=== PATIENT | female | born 1955 | race Caucasian/White ===

== ENCOUNTER 2020-06-18 15:17 | Outpatient (CLI) | payer OTHER, SELFPAY ==
--- NOTE | ~2020-06-18 | MM_ITS ---
EXAMINATION: MM screening [facility] BI w ericka HISTORY: Screening mammogram TECHNIQUE: Craniocaudal and mediolateral oblique 3-D tomosynthesis images were obtained and synthetic 2-D images were generated. CAD analysis was submitted and interpreted. COMPARISON: 02/03/2010, 12/21/2007 BREAST PARENCHYMAL COMPOSITION: There are scattered areas of fibroglandular density. FINDINGS: A stable low-density mass in the middle third of the inner right breast is consistent with a benign finding. There is no evidence of suspicious mass, calcification, or architectural distortion to suggest malignancy in either breast. There has been no suspicious interval change. IMPRESSION: 1. No mammographic evidence of malignancy. 2. Recommend routine screening mammography in one year. BI-RADS Category 2: Benign finding(s). Reviewed, dictated and finalized at location A. [employer]
== END 2020-06-18 15:18 | disposition home or self-care (01) ==
LOC: ANHIMG 15:21
PROVIDERS: PCP Internal Medicine; Visit Provider Obstetrics & Gynecology
DX: Z12.31 Encounter for screening mammogram for malignant neoplasm of breast (principal)
CPT/HCPCS: 77063; 77067

== ENCOUNTER 2021-07-07 00:18 | Day surgery (SDC) | payer MEDICARE, OTHER, SELFPAY ==
[2021-06-09 13:42] VITALS: BMI 54.6
--- NOTE | 2021-06-25 11:05 | PC.NURSE ---
Pt was on a bus trip to [place], upon return a person on the trip became ill and subsequently tested positive for covid. [facility] notified all patrons on the trip to be tested. Ronel called today and covid test was negative and she is not having any symptoms. She requested to be rescheduled earlier if possible. Recheduled her to 07/07/2021, I have instructed her to call us if she would begin having any symptoms of covid and to be retested. She denies any changes in health or medications from previous interview. Times reviewed for new date and time.
--- NOTE | 2021-07-06 15:22 | PM.HPGS ---
History of Present Illness History of Present Illness Consent: Risks, benefits, and alternatives have been discussed and questions answered. Patient agrees to proceed with procedure. Chief complaint: ulcerative colitis, hx of colon polyps Narrative: Ronel Ireland is a 65 year old female with a long history of ulcerative colitis who is here for surveillance colonoscopy. At the time of her last colonoscopy 2 years ago her colitis was relatively inactive. She did have 2 polyps at that time. She has not seen blood in her stools recently and has no new complaints Review of Systems Review of Systems: All systems reviewed & are unremarkable except as noted in HPI and below PMFSH Past Medical History Medical History GERD (gastroesophageal reflux disease) Hyperlipidemia Hypertension Ulcerative colitis Social History Social History Drinks per week: 5 Living arrangements: with family Spiritual care concerns: No Meds Home Medications and Allergies Home Medications Medication Instructions Recorded Confirmed Type ergocalciferol (vitamin D2) 500,000 unit PO [id number] 06/09/21 06/09/21 History fluticasone propionate 1 spray INTRANASAL DAILY PRN 06/09/21 06/09/21 History furosemide 60 mg PO DAILY 06/09/21 06/09/21 History mesalamine 4.8 g PO DAILY 06/09/21 06/09/21 History omeprazole 40 mg PO DAILY 06/09/21 06/09/21 History potassium chloride [Klor-Con M20] 20 meq PO DAILY 06/09/21 06/09/21 History simvastatin 40 mg PO DAILY 06/09/21 06/09/21 History telmisartan 80 mg PO DAILY 06/09/21 06/09/21 History Allergies Allergy/AdvReac Type Severity Reaction Status Date / Time Penicillins Allergy Mild Hives / Verified 07/07/21 08:22 Red Face Exam Const: General: alert Nutritional Appearance: overweight Orientation/consciousness: patient oriented x3 Resp: Auscultation: clear to auscultation bilaterally Cardio: Rhythm: regular rhythm GI: GI Palp: Yes Soft to palpation and No Tenderness to palpation present (GI) Auscultation: normal bowel sounds Neuro: General: patient oriented x3 Assessment and Plan Assessment and plan (1) Ulcerative colitis: Code(s): K51.90 - Ulcerative colitis, unspecified, without complications Status: Acute Assessment and Plan: Colonoscopy with possible biopsy or polypectomy or cautery or injection of substances.
--- NOTE | 2021-07-07 08:00 | WPDANESEPPF ---
Anes - Initial Pre Proc Eval Procedure: Operation Date: 07/07/21 09:30 Proposed Procedures p Colonoscopy - Dennis Pereyra MD Date/Time: 07/07/21 08:00 Surgeon: Dennis Pereyra MD Pre Op Diagnosis: ulcerative colitis, hx of colon polyps Patient Data Age: 65 Gender: F Height: 1.52 m Weight: 127 kg Allergies Allergy/AdvReac Type Severity Reaction Status Date / Time Penicillins Allergy Mild Hives / Verified 07/07/21 08:22 Red Face Home Medications Medication Instructions Recorded Confirmed Type ergocalciferol (vitamin D2) 500,000 unit PO [id number] 06/09/21 06/09/21 History fluticasone propionate 1 spray INTRANASAL DAILY PRN 06/09/21 06/09/21 History furosemide 60 mg PO DAILY 06/09/21 06/09/21 History mesalamine 4.8 g PO DAILY 06/09/21 06/09/21 History omeprazole 40 mg PO DAILY 06/09/21 06/09/21 History potassium chloride [Klor-Con M20] 20 meq PO DAILY 06/09/21 06/09/21 History simvastatin 40 mg PO DAILY 06/09/21 06/09/21 History telmisartan 80 mg PO DAILY 06/09/21 06/09/21 History Patient hx anesthesia problems: none Family hx anesthesia problems: none Results Review: All pre-operative results and documents have been reviewed as part of the pre-operative evaluation. [facility] Past Medical History Medical History (Updated 07/07/21 @ 08:03 by Xavi Olivo DO) GERD (gastroesophageal reflux disease) Hyperlipidemia Hypertension Ulcerative colitis Social History Social History Drinks per week: 5 Living arrangements: with family Spiritual care concerns: No Anes - Eval Final PreProcedure Day of Procedure 07/07/21 08:00 Patient weight: super morbidly obese Heart: regular rate and rhythm Lungs: clear to auscultation and normal air movement Airway: Mallampati scale class II Neurological: alert and oriented Last oral intake: >/= 8 hours ASA classification: III Emergent: no Anesthetic plan: proceed Anesthesia type and monitoring: general GIVS and standard monitoring Results Review: All pre-operative results and documents have been reviewed as part of the pre-operative evaluation. Informed Consent: The patient's anesthetic plan and its attendant risks and benefits were discussed with the patient/family/POA. Questions were solicited and answers provided to the satisfaction of the patient/family/POA.
[2021-07-07 08:24] VITALS: BP 164/87; PULSE 90; RESP 24; TEMP 36.9; O2SAT 96; BMI 55.5
[2021-07-07] MEDS: LACTATED RINGERS 1,000 ML 150 ML IV CONT (08:36)
[2021-07-07] MEDS: SIMETHICONE ORAL SUSPENSION 20 MG/0.3 ML 30 ML BOTTLE 0.6 ML IRRIGATION (10:03)
[2021-07-07 10:20] VITALS: BP 117/69; PULSE 89; RESP 21; O2SAT 98
[2021-07-07 10:30] VITALS: BP 135/84; PULSE 85; RESP 17; O2SAT 96
[2021-07-07 10:40] VITALS: BP 148/90; PULSE 84; RESP 19; O2SAT 100
== END 2021-07-07 10:54 | disposition home or self-care (01) ==
PROVIDERS: PCP Internal Medicine; Visit Provider Internal Medicine Gastroenterology
PROC: 0DJD8ZZ Inspection of Lower Intestinal Tract, Via Natural or Artificial Opening Endoscopic (ICD-10-PCS; CPT 45378; principal; 2021-07-07 09:30)
DX: Z09 Encounter for follow-up examination after completed treatment for conditions other than malignant neoplasm (principal); D12.5 Benign neoplasm of sigmoid colon; K62.89 Other specified diseases of anus and rectum; K51.50 Left sided colitis without complications; K63.5 Polyp of colon; I10 Essential (primary) hypertension; E78.5 Hyperlipidemia, unspecified; K21.9 Gastro-esophageal reflux disease without esophagitis; E66.01 Morbid (severe) obesity due to excess calories; Z68.43 Body mass index [BMI] 50.0-59.9, adult
CPT/HCPCS: 45381; 45385; 45380; 88305; J2704; J7120

== ENCOUNTER 2021-07-19 14:52 | Outpatient (CLI) | payer MEDICARE, OTHER, SELFPAY ==
--- NOTE | ~2021-07-19 | MM_ITS ---
EXAMINATION: MM screening [facility] BI w ericka HISTORY: Screening mammogram, family history of breast cancer in her sister. TECHNIQUE: Craniocaudal and mediolateral oblique 3-D tomosynthesis images were obtained and synthetic 2-D images were generated. CAD analysis was submitted and interpreted. COMPARISON: 06/18/2020, 02/03/2010 BREAST PARENCHYMAL COMPOSITION: There are scattered areas of fibroglandular density. FINDINGS: There is no evidence of suspicious mass, calcification, or architectural distortion to sugg est malignancy in either breast. There has been no suspicious interval change. IMPRESSION: 1. No mammographic evidence of malignancy. 2. Recommend routine screening mammography in one year. BI-RADS Category 1: Negative Reviewed, dictated and finalized at location A. ER TRAP
== END 2021-07-19 14:53 | disposition home or self-care (01) ==
LOC: ANHIMG 14:53
PROVIDERS: PCP Internal Medicine; Visit Provider Obstetrics & Gynecology
DX: Z12.31 Encounter for screening mammogram for malignant neoplasm of breast (principal)
CPT/HCPCS: 77063; 77067

== ENCOUNTER 2022-09-14 00:31 | Day surgery (SDC) | payer MEDICARE, OTHER, SELFPAY ==
[2022-08-31 12:09] VITALS: BMI 55.0
--- NOTE | 2022-09-13 15:23 | PM.HPGS ---
History of Present Illness History of Present Illness Consent: Risks, benefits, and alternatives have been discussed and questions answered. Patient agrees to proceed with procedure. Chief complaint: hx colon polyps, Ulcerative colitis Narrative: Ronel Ireland is a 67 year old female with a long history of ulcerative colitis. She has done fairly well and is in relative remission. She takes mesalamine, 4.8 g per day. A little over 1 year ago she had a large adenomatous polyp removed from the sigmoid colon. Because of the higher risk of colon cancer in patients with ulcerative colitis, this was worrisome. The polyp was sessile. We will need to investigate to ensure that there is no recurrence of that polyp and to rule out and remove any other polyps. Review of Systems Review of Systems: All systems reviewed & are unremarkable except as noted in HPI and below PMFSH Past Medical History Medical History GERD (gastroesophageal reflux disease) Hyperlipidemia Hypertension Ulcerative colitis Social History Social History Smoking status: Never smoker Alcohol intake: current Drinks per week: 14 Substance use type: does not use Living arrangements: with family Spiritual care concerns: No Meds Home Medications and Allergies Home Medications Medication Instructions Recorded Confirmed Type ergocalciferol (vitamin D2) 1,250 500,000 unit PO [id number] 06/09/21 09/14/22 History mcg (50,000 unit) capsule fluticasone propionate 50 1 spray intranasal DAILY PRN 06/09/21 09/14/22 History mcg/actuation nasal Allergy Symptoms spray,suspension furosemide 20 mg tablet 60 mg PO DAILY 06/09/21 09/14/22 History omeprazole 40 mg capsule,delayed 40 mg PO DAILY 06/09/21 09/14/22 History release potassium chloride 20 mEq 20 meq PO DAILY 06/09/21 09/14/22 History tablet,extended release(part/cryst) (Klor-Con M) simvastatin 40 mg tablet 40 mg PO DAILY 06/09/21 09/14/22 History telmisartan 80 mg tablet 80 mg PO DAILY 06/09/21 09/14/22 History carvedilol 3.125 mg tablet 3.125 mg PO BID 08/31/22 09/14/22 History mesalamine 1.2 gram tablet,delayed 4.8 g PO DAILY 08/31/22 09/14/22 History release Allergies Allergy/AdvReac Type Severity Reaction Status Date / Time Penicillins Allergy Mild Hives / Verified 09/14/22 06:53 Red Face Exam Const: General: alert Orientation/consciousness: patient oriented x3 Resp: Auscultation: clear to auscultation bilaterally Cardio: Rhythm: regular rhythm GI: GI Palp: Yes Soft to palpation and No Tenderness to palpation present (GI) Neuro: General: patient oriented x3 Assessment and Plan Assessment and plan (1) Ulcerative colitis: Code(s): K51.90 - Ulcerative colitis, unspecified, without complications Status: Acute Assessment and Plan: Colonoscopy with possible biopsy or polypectomy or cautery or injection of substances.
[2022-09-14 06:55] VITALS: BP 190/78; PULSE 74; RESP 22; TEMP 36.1; O2SAT 97
[2022-09-14] MEDS: LACTATED RINGERS 1,000 ML 150 ML IV CONT (07:07)
--- NOTE | 2022-09-14 07:43 | WPDANESEPPF ---
Anes - Initial Pre Proc Eval Procedure: Operation Date: 09/14/22 08:15 Proposed Procedures p Colonoscopy - Dennis Pereyra MD Date/Time: 09/14/22 07:43 Surgeon: Dennis Pereyra MD Pre Op Diagnosis: hx colon polyps, Ulcerative colitis Patient Data Age: 67 Gender: F Height: 1.52 m Weight: 129.4 kg Last Vital Signs Temp 97.0 F L 09/14/22 06:55 Pulse 74 09/14/22 06:55 Resp 22 H 09/14/22 06:55 BP 190/78 H 09/14/22 06:55 Pulse Ox 97 09/14/22 06:55 O2 Del Method Room Air 09/14/22 06:55 Allergies Allergy/AdvReac Type Severity Reaction Status Date / Time Penicillins Allergy Mild Hives / Verified 09/14/22 06:53 Red Face Home Medications Medication Instructions Recorded Confirmed Type ergocalciferol (vitamin D2) 1,250 500,000 unit PO [id number] 06/09/21 09/14/22 History mcg (50,000 unit) capsule fluticasone propionate 50 1 spray intranasal DAILY PRN 06/09/21 09/14/22 History mcg/actuation nasal Allergy Symptoms spray,suspension furosemide 20 mg tablet 60 mg PO DAILY 06/09/21 09/14/22 History omeprazole 40 mg capsule,delayed 40 mg PO DAILY 06/09/21 09/14/22 History release potassium chloride 20 mEq 20 meq PO DAILY 06/09/21 09/14/22 History tablet,extended release(part/cryst) (Klor-Con M) simvastatin 40 mg tablet 40 mg PO DAILY 06/09/21 09/14/22 History telmisartan 80 mg tablet 80 mg PO DAILY 06/09/21 09/14/22 History carvedilol 3.125 mg tablet 3.125 mg PO BID 08/31/22 09/14/22 History mesalamine 1.2 gram tablet,delayed 4.8 g PO DAILY 08/31/22 09/14/22 History release Patient hx anesthesia problems: none Family hx anesthesia problems: none Results Review: All pre-operative results and documents have been reviewed as part of the pre-operative evaluation. [facility] Past Medical History Medical History GERD (gastroesophageal reflux disease) Hyperlipidemia Hypertension Ulcerative colitis Social History Social History Smoking status: Never smoker Alcohol intake: current Drinks per week: 14 Substance use type: does not use Living arrangements: with family Spiritual care concerns: No Anes - Eval Final PreProcedure Day of Procedure 09/14/22 07:43 Patient weight: super morbidly obese Heart: regular rate and rhythm Lungs: clear to auscultation Airway: Mallampati scale class III Neurological: alert and oriented Last oral intake: >/= 8 hours ASA classification: IV Emergent: no Anesthetic plan: proceed Anesthesia type and monitoring: general GIVS and standard monitoring Results Review: All pre-operative results and documents have been reviewed as part of the pre-operative evaluation. Informed Consent: The patient's anesthetic plan and its attendant risks and benefits were discussed with the patient/family/POA. Questions were solicited and answers provided to the satisfaction of the patient/family/POA.
[2022-09-14 08:25] VITALS: BP 118/68; PULSE 83; RESP 21; O2SAT 96
[2022-09-14 08:35] VITALS: BP 127/64; PULSE 74; RESP 24; O2SAT 98
[2022-09-14 08:49] VITALS: BP 152/73; PULSE 62; RESP 17; O2SAT 99
== END 2022-09-14 09:01 | disposition home or self-care (01) ==
PROVIDERS: PCP Internal Medicine; Visit Provider Internal Medicine Gastroenterology
PROC: 0DJD8ZZ Inspection of Lower Intestinal Tract, Via Natural or Artificial Opening Endoscopic (ICD-10-PCS; CPT 45378; principal; 2022-09-14 08:15)
DX: Z12.11 Encounter for screening for malignant neoplasm of colon (principal); K63.5 Polyp of colon; K63.89 Other specified diseases of intestine; K57.30 Diverticulosis of large intestine without perforation or abscess without bleeding; I10 Essential (primary) hypertension; E78.5 Hyperlipidemia, unspecified; K21.9 Gastro-esophageal reflux disease without esophagitis; Z87.19 Personal history of other diseases of the digestive system; E66.01 Morbid (severe) obesity due to excess calories; Z68.43 Body mass index [BMI] 50.0-59.9, adult
CPT/HCPCS: 45380; 88305; J2704; J7120

== ENCOUNTER 2022-11-11 12:56 | Outpatient (CLI) | payer MEDICARE, OTHER, SELFPAY | END 2022-11-11 12:57 | disposition home or self-care (01) | LOC: ANHAUDASC 12:57 | PROVIDERS: PCP Internal Medicine; Visit Provider Internal Medicine | DX: H90.3 Sensorineural hearing loss, bilateral (principal) | CPT/HCPCS: 92557; 92567 ==

== ENCOUNTER 2023-01-23 15:00 | Outpatient (CLI) | payer MEDICARE, OTHER, SELFPAY ==
--- NOTE | ~2023-01-23 | MM_ITS ---
EXAMINATION: MM screening [facility] BI w ericka HISTORY: Screening mammogram TECHNIQUE: Craniocaudal and mediolateral oblique 3-D tomosynthesis images were obtained and synthetic 2-D images were generated. CAD analysis was submitted and interpreted. COMPARISON: 07/19/2021, 06/18/2020 bilateral screening mammogram examinations BREAST PARENCHYMAL COMPOSITION: There are scattered areas of fibroglandular density. FINDINGS: There is no evidence of suspicious mass, calcification, or architectural distortion to sugg est malignancy in either breast. There has been no suspicious interval change. IMPRESSION: 1. No mammographic evidence of malignancy. 2. Recommend routine screening mammography in one year. BI-RADS Category 1: Negative Reviewed, dictated and finalized at location A.
== END 2023-01-23 15:01 | disposition home or self-care (01) ==
LOC: ANHIMG 15:03
PROVIDERS: PCP Internal Medicine; Visit Provider Internal Medicine
DX: Z12.31 Encounter for screening mammogram for malignant neoplasm of breast (principal)
CPT/HCPCS: 77063; 77067

== ENCOUNTER 2023-01-24 14:32 | Outpatient (CLI) | payer MEDICARE, OTHER, SELFPAY ==
--- NOTE | 2023-01-26 17:23 | WPDPFTINT ---
PFT Procedure Performed PFT Procedure Performed Plethysmography (Lung Vol) Diffusing Cap (DLCO) Flow Vol Loop Spirometry w/o Bronchodil PFT Interpretation DOS: 01/24/2023 REQUESTING: Jeffery Silver MD REASON FOR TESTING: Shortness of breath PULMONARY FUNCTION TESTS Results are reliable and reproducible. Spirometry: FEV1 is 1.83 L, 92%, normal. FVC 2.38 L, 94%, normal. FEV1 /FVC 77%, normal. No bronchodilator was given. Lung volumes: Total lung capacity 3.65 L, 82%, normal. Residual volume 1.27 L, 66%, normal. RV /TLC is 35%, normal. Airway resistance is normal. Diffusion: DLCO is 19.2, 100% predicted, normal. DLCO/VA is 5.55 L, 123%, normal. Flow volume loop: Normal. IMPRESSION: This study shows normal spirometry, lung volumes and diffusion. No bronchodilator was given. No prior study for comparison. Ronel Villa MD
--- NOTE | 2023-01-27 12:54 | WPDPFTINT ---
PFT Procedure Performed PFT Procedure Performed Plethysmography (Lung Vol) Diffusing Cap (DLCO) Flow Vol Loop Spirometry w/o Bronchodil PFT Interpretation DOS: 01/24/2023 REQUESTING: Jeffery Silver MD REASON FOR TESTING: Shortness of breath PULMONARY FUNCTION TESTS Results are reliable and reproducible. Spirometry: FEV1 is 1.83 L, 92%, normal. FVC is 2.38 L, 94%, normal. FEV1/FVC is 77%, within the normal range. No bronchodilator was given. Lung volumes: total lung capacity is 3.65 L, 82%, normal. Residual volume is 1.27 L, 66%, normal. RV /TLC is 35 %, in the normal range. Airway resistance is normal. Diffusion: DLCO is 19.2, 100%, normal. DLCO/VA is 5.55, 123%, normal. Flow volume loop: Normal IMPRESSION: this study shows normal spirometry, normal lung volumes and normal diffusion capacity. No bronchodilator was given. There is no prior study for comparison. Ronel Villa MD
== END 2023-01-24 14:33 | disposition home or self-care (01) ==
LOC: ANHPFT 14:33
PROVIDERS: PCP Internal Medicine; Visit Provider Internal Medicine
DX: R06.02 Shortness of breath (principal)
CPT/HCPCS: 94375; 94726; 94729

== ENCOUNTER 2023-09-27 00:25 | Day surgery (SDC) | payer MEDICARE, OTHER, SELFPAY ==
[2023-08-31 10:03] VITALS: BMI 53.6
--- NOTE | 2023-09-25 08:59 | SUR.PREOP ---
Patient called regarding upcoming procedure. Voicemail left regarding appointment times.
--- NOTE | 2023-09-26 17:54 | PM.HPGS ---
History of Present Illness History of Present Illness Consent: Risks, benefits, and alternatives have been discussed and questions answered. Patient agrees to proceed with procedure. Chief complaint: Ulcerative colitis Narrative: Ronel Ireland is a 68 year old female with chronic ulcerative colitis who was undergoing evaluation for surveillance. Her last colonoscopy which was a little over 1 year ago revealed no active colitis or dysplasia. She did have a polyp removed at that time. Review of Systems Review of Systems: All systems reviewed & are unremarkable except as noted in HPI and below PMFSH Past Medical History Medical History GERD (gastroesophageal reflux disease) Hiatal hernia Hyperlipidemia Hypertension Normal colonoscopy 05/19/2019 Osteoarthritis (arthritis due to wear and tear of joints) Osteopenia Sleep apnea Ulcerative colitis Surgical History Surgical History H/O arthroscopic knee surgery H/O gynecological procedure Destruction of lesion of uterus History of cardiac cath 09/2017 History of incision and drainage (01/18/23) vulvar incision and drainage History of tonsillectomy and adenoidectomy Family History Family History Sibling Pulmonary embolism Malignant tumor of spinal cord Breast cancer Heart disease Cerebrovascular accident Diabetes mellitus Mother Carotid artery stenosis Acute myocardial infarction Diabetes mellitus Cerebrovascular accident Father Diabetes mellitus Social History Social History Smoking status: Never smoker Alcohol intake: current Drinks per week: 21 Alcohol use details: WINE Substance use: never Substance use type: does not use Living arrangements: with family Occupation/Education: retired Gender identity (if verbalized by the patient): Female Sexual Orientation (if Verbalized by the Patient): Straight or Heterosexual Spiritual care concerns: No Meds Home Medications and Allergies Home Medications Medication Instructions Recorded Confirmed Type ergocalciferol (vitamin D2) 1,250 50,000 unit PO [id number] 06/09/21 09/27/23 History mcg (50,000 unit) capsule fluticasone propionate 50 1 spray intranasal DAILY PRN 06/09/21 09/27/23 History mcg/actuation nasal Allergy Symptoms spray,suspension furosemide 20 mg tablet 60 mg PO DAILY 06/09/21 09/27/23 History omeprazole 40 mg capsule,delayed 40 mg PO DAILY 06/09/21 09/27/23 History release potassium chloride 20 mEq 20 meq PO DAILY 06/09/21 09/27/23 History tablet,extended release(part/cryst) (Klor-Con M) simvastatin 40 mg tablet 40 mg PO DAILY 06/09/21 09/27/23 History telmisartan 80 mg tablet 80 mg PO DAILY 06/09/21 09/27/23 History carvedilol 3.125 mg tablet 3.125 mg PO BID 08/31/22 09/27/23 History coQ10 (ubiquinol) 100 mg capsule 100 mg PO DAILY 08/31/23 09/27/23 History mesalamine 1.2 gram tablet,delayed 2.4 g PO DAILY 08/31/23 09/27/23 History release ecauidrm-dlil-sjgvz acid 240 1 tablet PO DAILY 08/31/23 09/27/23 History mcg-vit K 120 ktx-rnofqm-sgso 293 tablet (Alive Women's 50 Plus (fruit-veg blend)) triamcinolone acetonide 0.1 % 1 applic topical PRN PRN Rash 08/31/23 09/27/23 History topical cream Allergies Allergy/AdvReac Type Severity Reaction Status Date / Time Penicillins Allergy Intermediate Hives / Verified 09/27/23 06:25 Red Face Exam Resp: Auscultation: clear to auscultation bilaterally Cardio: Rate: regular rate Rhythm: regular rhythm GI: GI Palp: Yes Soft to palpation and No Tenderness to palpation present (GI) Assessment and Plan Assessment and plan (1) Ulcerative colitis: Code(s): K51.90 - Ulcerative colitis, unspecified, without complications Status: Acute
[2023-09-27 06:15] VITALS: BP 188/83; PULSE 85; RESP 16; TEMP 36.8; O2SAT 98; BMI 53.1
[2023-09-27] MEDS: LACTATED RINGERS 1,000 ML 150 ML IV CONT (06:42)
--- NOTE | 2023-09-27 07:28 | WPDANESEPPF ---
Anes - Initial Pre Proc Eval Procedure: Operation Date: 09/27/23 07:30 Proposed Procedures p Colonoscopy - Dennis Pereyra MD Date/Time: 09/27/23 07:28 Surgeon: Dennis Pereyra MD Pre Op Diagnosis: Ulcerative colitis Patient Data Age: 68 Gender: F Height: 1.52 m Weight: 123.5 kg Last Vital Signs Temp 98.2 F 09/27/23 06:15 Pulse 85 09/27/23 06:15 Resp 16 09/27/23 06:15 BP 188/83 H 09/27/23 06:15 Pulse Ox 98 09/27/23 06:15 O2 Del Method Room Air 09/27/23 06:15 Allergies Allergy/AdvReac Type Severity Reaction Status Date / Time Penicillins Allergy Intermediate Hives / Verified 09/27/23 06:25 Red Face Home Medications Medication Instructions Recorded Confirmed Type ergocalciferol (vitamin D2) 1,250 50,000 unit PO [id number] 06/09/21 09/27/23 History mcg (50,000 unit) capsule fluticasone propionate 50 1 spray intranasal DAILY PRN 06/09/21 09/27/23 History mcg/actuation nasal Allergy Symptoms spray,suspension furosemide 20 mg tablet 60 mg PO DAILY 06/09/21 09/27/23 History omeprazole 40 mg capsule,delayed 40 mg PO DAILY 06/09/21 09/27/23 History release potassium chloride 20 mEq 20 meq PO DAILY 06/09/21 09/27/23 History tablet,extended release(part/cryst) (Klor-Con M) simvastatin 40 mg tablet 40 mg PO DAILY 06/09/21 09/27/23 History telmisartan 80 mg tablet 80 mg PO DAILY 06/09/21 09/27/23 History carvedilol 3.125 mg tablet 3.125 mg PO BID 08/31/22 09/27/23 History coQ10 (ubiquinol) 100 mg capsule 100 mg PO DAILY 08/31/23 09/27/23 History mesalamine 1.2 gram tablet,delayed 2.4 g PO DAILY 08/31/23 09/27/23 History release kqhvrlol-sfok-unthl acid 240 1 tablet PO DAILY 08/31/23 09/27/23 History mcg-vit K 120 nyy-vqknhs-amuc 293 tablet (Alive Women's 50 Plus (fruit-veg blend)) triamcinolone acetonide 0.1 % 1 applic topical PRN PRN Rash 08/31/23 09/27/23 History topical cream Patient hx anesthesia problems: none Family hx anesthesia problems: none Results Review: All pre-operative results and documents have been reviewed as part of the pre-operative evaluation. [facility] Past Medical History Medical History GERD (gastroesophageal reflux disease) Hiatal hernia Hyperlipidemia Hypertension Normal colonoscopy 05/19/2019 Osteoarthritis (arthritis due to wear and tear of joints) Osteopenia Sleep apnea Ulcerative colitis Surgical History Surgical History H/O arthroscopic knee surgery H/O gynecological procedure Destruction of lesion of uterus History of cardiac cath 09/2017 History of incision and drainage (01/18/23) vulvar incision and drainage History of tonsillectomy and adenoidectomy Family History Family History Sibling Pulmonary embolism Malignant tumor of spinal cord Breast cancer Heart disease Cerebrovascular accident Diabetes mellitus Mother Carotid artery stenosis Acute myocardial infarction Diabetes mellitus Cerebrovascular accident Father Diabetes mellitus Social History Social History Smoking status: Never smoker Alcohol intake: current Drinks per week: 21 Alcohol use details: WINE Substance use: never Substance use type: does not use Living arrangements: with family Occupation/Education: retired Gender identity (if verbalized by the patient): Female Sexual Orientation (if Verbalized by the Patient): Straight or Heterosexual Spiritual care concerns: No Anes - Eval Final PreProcedure Day of Procedure 09/27/23 07:28 Patient weight: super morbidly obese Heart: regular rate and rhythm Lungs: clear to auscultation Airway: Mallampati scale class III Neurological: alert and oriented Last oral intake: >/= 8 hours ASA classification: IV Emergent: no Anesthet
[2023-09-27 07:53] VITALS: BP 107/42; PULSE 72; RESP 16; O2SAT 97
[2023-09-27 08:03] VITALS: BP 119/49; PULSE 69; RESP 21; O2SAT 98
[2023-09-27 08:13] VITALS: BP 111/45; PULSE 64; RESP 17; O2SAT 96
== END 2023-09-27 08:30 | disposition home or self-care (01) ==
PROVIDERS: PCP Internal Medicine; Visit Provider Internal Medicine Gastroenterology
PROC: 0DJD8ZZ Inspection of Lower Intestinal Tract, Via Natural or Artificial Opening Endoscopic (ICD-10-PCS; CPT 45378; principal; 2023-09-27 07:30)
DX: K51.90 Ulcerative colitis, unspecified, without complications (principal); K51.30 Ulcerative (chronic) rectosigmoiditis without complications; D12.5 Benign neoplasm of sigmoid colon; K57.30 Diverticulosis of large intestine without perforation or abscess without bleeding; K21.9 Gastro-esophageal reflux disease without esophagitis; E78.5 Hyperlipidemia, unspecified; I10 Essential (primary) hypertension
CPT/HCPCS: 45380; 45385; 88305; J2704; J7120

== ENCOUNTER 2024-10-04 13:32 | Outpatient (CLI) | payer MEDICARE, OTHER, SELFPAY | END 2024-10-04 13:33 | disposition home or self-care (01) | LOC: MICIMG 13:33 | PROVIDERS: PCP Internal Medicine; Visit Provider Obstetrics & Gynecology | DX: Z12.31 Encounter for screening mammogram for malignant neoplasm of breast (principal) | CPT/HCPCS: 77063; 77067 ==

== ENCOUNTER 2024-10-17 00:15 | Day surgery (SDC) | payer MEDICARE, OTHER, SELFPAY ==
[2024-10-08 09:30] VITALS: BMI 54.1
--- OUTSIDE RECORDS SUMMARY | 2024-10-17 00:19 | XMS_ITS | Clinical Summary ---
Author Organization [facility] [address] Address [address] [place] [address] Care Team Providers Care Abrasive Grader Helper Name Role Phone Jeffery Silver MD Primary Care Provider + [phone] Allergies Active Allergy Reactions Criticality Noted Date Comments Penicillins Medications furosemide (LASIX) 20 mg tablet Take 3 tablets (60 mg total) by mouth daily 8 Active omeprazole (PriLOSEC) 40 mg capsule Take 1 capsule (40 mg total) by mouth daily 8 Active KLOR-CON M20 20 mEq CR tablet Take 1 tablet (20 mEq total) by mouth daily 8 Active mesalamine (LIALDA) 1.2 gram EC tabletIndicatio ns:Ulcerative Colitis Take 4 tablets (4.8 g total) by mouth daily 8 Active ergocalciferol (VITAMIN D) 50,000 unit capsule Take 1 capsule (50,000 Units total) by mouth every 14 (fourteen) days 8 Active telmisartan (MICARDIS) 20 mg tablet Take 1 tablet (20 mg total) by mouth daily Active Wl-Y1-hkl-zinc- trn-ymqe-nxgvj 600 mg calcium- 800 unit-40 mg tablet,chewable Take by mouth Active atorvastatin (LIPITOR) 40 mg tablet Take 1 tablet (40 mg total) by mouth daily Active carvediloL (COREG) 3.125 mg tablet Take 1 tablet (3.125 mg total) by mouth 2 (two) times a day with meals Active fexofenadine (WILLY) 60 mg tablet Take 1 tablet (60 mg total) by mouth daily Active triamcinolone (KENALOG) 0.1 % cream Apply topically 2 (two) times a day Active acidophilus-pec tin, citrus 100 million cell-10 mg capsule Take by mouth Activ e Active Problems Problem Noted Date Diagnosed Date Abnormal nuclear stress test 04/25/2018 HTN (hypertension), benign 04/25/2018 Morbid obesity with BMI of 50.0-59.9, adult 04/07 Dyslipidemia associated with type 2 diabetes araceli litus 04/25/2018 YO (dyspnea on exertion) 04/25/2018 Venous insufficiency 04/25/2018 Arthralgia of hip 12/04/2013 Resolved Problems Problem Noted Date Diagnosed Date Resolved Date 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/11/2009 0 04/25/2018 Encounters Date Type Department Care Team Description 08/05/2024 Telephone [facility] Card[facility] [address] [place] [address] Jeffery Pettit MD from Last 3 Months Surgical History Surgery Date Site/Laterality Comments TONSILLECTOMY KNEE SURGERY SECTION Medical History Medical History Date Comments Hypertension Hyperlipidemia Diabetes mellitus (HCC) Sinusitis Allergic rhinitis Family History Medical History Relation Name Comments Diabetes Father Heart disease Father Diabetes Mother Heart disease Mother Relation Name Status Comments Father (Age 83) Mother Social History Tobacco Use Types Packs/Day Years Used Date Smoking Tobacco: Never Smokeless Tobacco: Never Alcohol Use Standard Drinks/Week Comments Yes 0 (1 standard drink = 0.6 oz pur e alcohol) asional Comments Unknown Sex and Gender Information Value Date Recorded Sex Assigned at Not on file Legal Sex Female 12:00 AM KENNEL ASSISTANT Gender Identity Not on file Sexual Orientation Not on file Obstetrics History Last Filed Vital Signs Vital Sign Reading Time Taken Comments Blood Pressure 132/86 06/28/2024 9:56 AM KENNEL ASSISTANT Pulse 76 06/28/2024 9:56 AM KENNEL ASSISTANT Temperature - - Respiratory Rate - - Oxygen Saturation 98% 06/28/2024 9:56 AM KENNEL ASSISTANT Inhaled Oxygen Concentration - - Weight 127.9 kg (282 lb) 06/28/2024 9:56 AM KENNEL ASSISTANT Height 152.4 cm (5') 06/28/2024 9:56 AM KENNEL ASSISTANT Body Mass Index 55.07 06/28/2024 9:56 AM KENNEL ASSISTANT Plan of Treatment Health Maintenance Due Date Last Done Comments Albumin Creatinine Ratio, Urine 1955 Breast Cancer Screening-Mammogram 1955 Colon Cancer Screening-Colonoscopy 1955 Depression Screening 1955 Fall Risk Assessment 1955 Hemoglobin A1C 1955 Hepatitis C Screening 1955 Osteoporosis Screening-Bone Density Scan 1955 eGFR 1955 Dilated Eye Exam 1955 Foot Exam 1955 DTaP/Tdap/Td Vaccine (1 - Tdap) 1966 Hepatitis B Screening 1973 Pneumococcal vaccine 65+ (1 of 2 - PCV) 1974 Zoster Vaccine (1 of 2) 2005 Well Visit 65+ 2020 Influenza Vaccine (#1) 2024 3, 04/22/2022, 05/25/2020, Additional history exists Lipid Panel 06/28/2025 06/28/2024 Procedures Procedure Name Priority Date/Time Associated Diagnosis Comments POCT LIPID PANEL Routine 06/28/2024 9:50 AM KENNEL ASSISTANT Lipid screening from Last 3 Months or Most Recently Relevant to Health Maintenance Results * POCT lipid panel (06/28/2024 9:50 AM KENNEL ASSISTANT) Cholesterol, POC 180 mg/dL HDL, POC 61 mg/dL Triglycerides, POC 108 mg/dL LDL Cholesterol POC 98 mg/dL Chol/HDL Ratio, POC 2.9 Non-HDL Cholesterol, POC 119 mg/dL Cholesterol Total, POC 180 mg/dL Capillary blood 06/28/2024 9 :50 AM KENNEL ASSISTANT us Jeffery Pettit MD POINT OF CARE TEST ORDER DOUG Final Result from Last 3 Months or Most Recently Relevant to Health Maintenance Insurance [facility] HMO [facility] MEDICARE Care Teams Abrasive Grader Helper Relationship Specialty Start Date End Date Jeffery Silver MD PCP - General Internal Medicine 04/25/18
--- OUTSIDE RECORDS SUMMARY | 2024-10-17 00:19 | XMS_ITS | CONTINUITY OF CARE DOCUMENT ---
Author Name marleni yepez Address Unknown Organization [facility] Address [address] [place] [address] Phone [phone] Care Team Providers Care Night Assistant Name Role Phone NIDHI ESQUIVEL, ROMAN Dash Unavailable INSURANCE PROVIDERS Payer name Policy type / Coverage type [employer]rita red democr[employer] [place] [employer] [id number] insurance company [id number]
--- OUTSIDE RECORDS SUMMARY | 2024-10-17 00:19 | XMS_ITS | Data Portability ---
Author Organization [place] - [facility], Main Office Address [address] [place] [address] Care Team Providers Care Sorting Machine Operator Name Role Phone ROMAN SILVER Primary Care Provider [phone] ROMAN SILVER Referring Provider [phone] Assessment Encounter Date Assessment Date Assessment LastModified by Organization Details LastModified Time 12/12/2023 12/12/2023 68-year-old female presents for follow-up of her left shoulder. She has left shoulder osteoarthritis being treated conservatively. At her last visit in August, she got a cortisone injection. That worked well for her for a couple of months but it is beginning to wear off. She returns today looking for repeat injection. She denies any changes since her previous visit otherwise. She currently rates her pain as 9/10. She has range of motion 120/20/back pocket, with crepitus. She has 5 5 rotator cuff strength. Neurovascular intact. We will proceed with a repeat cortisone injection today. We discussed that she can get these every few months as long as they are working. She should continue to work on weight loss as her current BMI is still 53.7. Follow-up as needed, may repeat injection in 3-4 months Not available 12/12/2023 23:35:07 03/13/2024 03/13/2024 68-year-old female presents for follow-up of her left shoulder. She has a history of arthritis and got an injection at her last visit in August of this year. That has since worn off and she reports 9/10 pain, feeling similar. Exam unchanged from previously We repeated the cortisone injection today. She tolerated well. She may follow-up as needed, for her next set of injections. Not available 03/13/2024 16:46:46 05/01/2024 05/01/2024 Time spent with patient included: preparing to see patient by reviewing tests, obtaining and reviewing history, medical examination and evaluation, counseling and educating the patient, ordering medications and tests, documenting clinical information in EHR, independently interpreting results and communicating results to the patient for a total of 46 minutes. [email or web address] Not available 05/01/2024 14:09:40 06/19/2024 06/19/2024 68-year-old female presents for follow-up of her left shoulder. She has a history of arthritis and got an injection at her last visit 3 months ago that has since worn off and she reports 9/10 pain, feeling similar. She is not taking medications for pain. She states her PCP prescribed her tramadol but she has been hesitant to take it. Exam unchanged from previously We repeated the cortisone injection today. She tolerated well. She may follow-up every 3 months for injections. [email or web address] Not available 06/19/2024 15:48:25 10/02/2024 10/02/2024 HPI: 69-year-old female presents today for follow-up of left shoulder pain secondary to osteoarthritis. She received an injection on 06-19-24, which provided minimal relief. Notes that her shoulder hurts more, especially when she sleeps. Reports pain as 9/10, not taking anything for pain. She is concern about the risk of GI bleeding that comes with taking anti-inflammatori es. She would like to proceed with an injection today. Physical Exam: General: Normal appearance. No acute distress. Inspection: No evidence of swelling, erythema, bruising or deformity. Palpation: Minimal tenderness at the AC Joint ROM: 110/20/back pocket Motor: 5/5 strength. Sensation: Sensation intact. Imaging: Xray reviewed. No fractures or other bony abnormalities. Severe glenohumeral joint space lost with osteophytes and subchondral sclerosis Assessment & Plan: Injection was given today. Patient tolerated the injection. Patient will monitor site for signs of infection and report any adverse side effects. Rx for Celebrex 100mg BID. Discussed that celebrex has been shown to have a greater GI and cardiovascular safety then when to compared to other anti-inflammatori es. She is also on a PPI, which also helps reduce the risk of GI bleeding. PT ordered. Follow Up: 3 months for recheck and possible injection. All questions were answered. Patient verbalized understanding of treatment plan [email or web address] Not available 10/06/2024 23:23:09 Plan of Treatment Reminders Order Date Submit Date Provider Last Modified By Organization Details Last Modified Time Details Appointments Any 5 2024 01:00P Lisa Ibarra MD Not available Not available Not available Lab None recorded. Referral physical therapist referral - Please schedule pt for L shoulder arthritis . Thanks 2024 025 [facility] [place] [facility], [address], [place], [address], 10/15/2024 18:24:09 Procedures injection /aspirati on joint/bur sa (PROC) 2024 025 [email or web address] 1 In-Office Order, Internal Use Only DO Not Attach Compendium DO Not Attach Compendium, Do Not Delete/merge, [id number] 10/02/2024 14:29:01 injection /aspirati on joint/bur sa (PROC) 2023 024 [email or web address] In-Office Order, Internal Use Only DO Not Attach Compendium DO Not Attach Compendium, Do Not Delete/merge, [id number] 06/19/2024 15:36:31 injection /aspirati on joint/bur sa (PROC) 2023 024 [email or web address] 1 In-Office Order, Internal Use Only DO Not Attach Compendium DO Not Attach Compendium, Do Not Delete/merge, [id number] 12/12/2023 11:09:54 Surgeries None recorded. Imaging XR, shoulder 2024 025 [email or web address] [facility], [address], [place], [address], 10/06/2024 23:23:12 Medication Orders Celebrex 100 mg capsule 2024 025 [email or web address] [id number], [address] [place], [address], 10/03/2024 01:02:37 bupivacai ne HCl 0.5 % (5 mg/mL) injection solution 2024 025 [facility], [address] [place] [address], [id number], 10/02/2024 14:48:17 Kenalog 10 mg/mL suspensio n for injection 2024 025 [facility], [address] [place] [address], [id number], 10/02/2024 14:48:17 bupivacai ne HCl 0.5 % (5 mg/mL) injection solution 2023 024 [facility], [address] [place] [address], [id number], 06/22/2024 21:18:55 Kenalog 10 mg/mL suspensio n for injection 2023 024 [facility], [address] [place] [address], [id number], 06/22/2024 21:18:55 bupivacai ne HCl 0.5 % (5 mg/mL) injection solution 2023 024 [email or web address] [facility], [address] [place] [address], [id number], 03/13/2024 15:41:08 Kenalog 10 mg/mL suspensio n for injection 2023 024 [email or web address] [facility], [address] [place] [address], [id number], 05/01/2024 12:11:56 Patient TargetsNo targets recorded. Patient InstructionsNo instructions recorded. Reason for Referral Physical Therapist Referral for Localized, primary osteoarthritis of the shoulder region L shoulder Please schedule pt for L shoulder arthritis. Thanks Referring Physician: Cheli Aguilera, Orthopedic Surgery, Encounter Date: 10/02/2024 Results Created Date Observation Date Name Description Value Unit Range Abnormal Flag Note LastModifiedBy Organization Detail LastModifiedTime 10/02/19 25 XR, shoul durga No observ ation record ed. [email or web address] [facility] [place] [address], [place], [address], 10/06/2024 23:23:12 Result Notes None recorded. Problems Name Problem SNOMED Code Status Onset Date Resolution Date Notes Provider Name and Address Organization Details Recorded Time Hearing loss 87277758 Active 2022 Not Available [facility] 3 19:51:24 Dyspnea 900738400 Active 2022 Not Available [facility] 3 19:51:24 Localized, primary osteoarthr itis of the shoulder region 667427093 Active 2022 Not Available [facility] 3 19:51:24 Cough 48673397 Active 2022 Not Available [facility] 3 19:51:24 Glucose level outside reference range 050172909 Completed Not Available [facility] 3 04:53:01 Cellulitis 907931524 Completed Not Available [facility] 3 04:53:01 Localized, primary osteoarthr itis of the pelvic region and thigh 049370108 Active Not Available [facility] 3 19:51:24 Abdominal pain 43498603 Completed Not Available [facility] 3 04:53:01 Gastroesop hageal reflux disease 355379909 Active 2021 Not Available [facility] 3 19:51:24 Ankle pain 833812822 Active Not Available [facility] 3 19:51:24 Small intestine glucose intoleranc e 784957456 Completed Not Available [facility] 3 04:53:01 Wound of skin 871282673 Active Not Available [facility] 3 19:51:24 Hemorrhage of rectum and anus 359704024 Active Not Available [facility] 3 19:51:24 Pure hyperchole sterolemia 278218525 Active Not Available [facility] 3 19:51:24 Low back pain 207265860 Completed Not Available [facility] 3 04:53:02 Adnexal tenderness 442363145 Active Not Available [facility] 3 19:51:24 Osteopenia 132277432 Active Not Available [facility] 3 19:51:24 Otitis externa 9475629 Completed Not Available [facility] 3 04:53:02 Vitamin D deficiency 22892846 Active Not Available [facility] 3 19:51:24 Osteoarthr itis 813829079 Active Not Available [facility] 3 19:51:24 Sleep disorder 48603672 Active 2021 Not Available [facility] 3 19:51:24 Painless rectal bleeding 205272910 Active Not Available [facility] 3 19:51:24 Essential hypertensi on 99615560 Active 2016 Not Available [facility] 3 19:51:24 Ulcerative colitis 45598349 Active 2019 Not Available [facility] 3 19:51:24 Osteoporos is 44315012 Active 2021 Not Available [facility] 3 19:51:24 Venous stasis 00243271 Active Not Available [facility] 3 19:51:24 Obstructiv e sleep apnea syndrome 52199542 Active 2021 Not Available [facility] 3 19:51:24 Hyperglyce savita 38494321 Active Not Available [facility] 3 19:51:24 COVID-19 178648287 Active 2021 Not Available [facility] 3 19:51:24 Fatigue 83109307 Active 2021 Not Available [facility] 3 19:51:24 Urge incontinen ce of urine 54037558 Active Not Available [facility] 3 19:51:24 Notes:Medical History: Ocula r histoplasmosis COVID infection 12/2021 Rhinitis Obesity with very severe OSAHS, AHI = 80, 03/21/22, on CPAP c/o IVRC Hypertension Hyperlipidemia Prediabetes SHADY Ulcerative colitis Urge urinary incontinence Vit D deficiency Osteopenia Osteoarthritis Venous stasis Procedure History: T&A Arthroscopic knee surgery Problem Notes None recorded. Procedures Surgical History Date Name Laterality Status Provider Name and Address Organization Details Recorded Time 10/02/19 25 Corticosteroid Injection completed Cheli Aguilera PA-C [address], [address], [place], [address], [facility] 10/06/2024 23:16:15 06/19/20 24 Ortho - Cortisone Injection completed Lexi Plascencia NP [address], [address], [place], [address], [facility] 06/19/2024 15:49:16 03/13/20 24 Ortho - Cortisone Injection completed Trent Ibarra MD [address], [address], [place], [address], [facility] 03/13/2024 16:46:59 12/12/19 24 Ortho - Cortisone Injection completed Trent Ibarra MD [address], [address], [place], [address], [employer] 12/12/2023 23:35:21 09/06/19 24 Ortho - Cortisone Injection completed Trent Ibarra MD [address], [address], [place], [address], [facility] [employer] 09/06/2023 21:41:56 04/26/20 23 Ortho - Cortisone Injection completed Trent Ibarra MD [address], [address], [place], [address], [facility] 04/26/2023 13:55:44 07/19/20 21 Most Recent Mammogram completed Not Available [facility] 10/05/2022 04:42:31 07/07/20 21 Date of Last Colonoscopy completed Not Available [facility] 10/05/2022 04:42:30 06/05/20 19 Colonoscopy completed Not Available [facility] 10/05/2022 04:42:34 03/13/20 14 Most Recent Bone Density completed Not Available [facility] 10/05/2022 04:42:30 Knee arthroscopy/surger y completed Not Available [facility] 10/05/2022 04:42:34 completed Not Available [facility] 10/05/2022 04:42:34 Tonsillectomy completed Not Available [facility] 10/05/2022 04:42:34 Cardiac Cath completed Not Available [facility] 10/05/2022 04:42:34 destruction of lesion of uterus completed Not Available [facility] 10/05/2022 04:42:34 Imaging Results Imaging Date Name Status LastModified by Organiz ation Details LastModified Time 10/02/2024 XR, shoulder completed [facility] [place] [address], [place], [address], 10/06/2024 23:23:12 Procedure Notes None recorded. Medical Equipment None Reported. Allergies Allergen ID Allergen Name Allergen Category Reaction Reaction Severity Criticality Documentation Date Start Date Code Code System Note Provider Name and Address Organization Details Recorded Time 8562 Product containin g penicilli n (product) medicatio n hives Not available Not available 10/05/2022 [id number] [id number] SNOMED Not Available [facility] 05:05:58 Medications Name Sig Start Date Stop Date Status Note LastModified by Organization Details LastModified Time atorvasta tin 40 mg tablet TAKE 1 TABLET BY MOUTH EVERY DAY active Not Available Not Available No t Available neomycin- polymyxin -hydrocor t 3.5 mg/mL-10, 000 unit/mL-1 % ear solution 3 drops TID both ears 09/04 completed Not Available Not Available Not Available doxycycli ne hyclate 100 mg capsule TAKE 1 CAPSULE BY MOUTH TWICE A DAY FOR 10 DAYS active Not Available Not Available No t Available clindamyc in HCl 300 mg capsule TAKE 1 CAPSULE BY MOUTH EVERY 8 HOURS 12/22 completed Not Available Not Available Not Available Proctocor t 30 mg rectal supposito ry Insert 1 supposit ory twice a day by rectal route for 7 days. 11/28 completed Not Available Not Available Not Available benzonata te 200 mg capsule Take 1 capsule 3 times a day by oral route. active Not Available Not Available No t Available tolterodi ne ER 4 mg capsule,e xtended release 24 hr TAKE 1 CAPSULE BY MOUTH EVERY DAY FOR 90 DAYS. 01/31 completed did not take this medicati on Not Available Not Available Not Available bupivacai ne HCl 0.5 % (5 mg/mL) injection solution Take 2 mL by injectio n route. 2024 active Not Available Not Available Not Avai lable prednison e 20 mg tablet take 3 tablets x 3days 2 tablets x 3days 1tablet x 3 days active Not Available Not Available No t Available Zithromax Z-Hao 250 mg tablet TAKE 2 TABLETS (500 MG) BY ORAL ROUTE ONCE DAILY FOR 1 DAY THEN 1 TABLET (250 MG) BY ORAL ROUTE ONCE DAILY FOR 4 DAYS 09/04 completed Not Available Not Available Not Available permethri n 5 % topical cream APPLY (THOROUG HLY MASSAGE INTO SKIN FROM HEAD TO SOLES OF FEET) BY TOPICAL ROUTE ONCE LEAVE ON FOR 8-14 HR, THEN REMOVE BY THOROUGH WASHING active Not Available Not Available No t Available metronida zole 500 mg tablet 07/23 completed Not Available Not Available Not Available ciproflox acin 500 mg tablet active Not Available Not Available No t Available sulfameth oxazole 800 mg-trimet hoprim 160 mg tablet TAKE 1 TABLET BY MOUTH EVERY 12 HOURS 03/13 completed Not Available Not Available Not Available omeprazol e 40 mg capsule,d elayed release TAKE 1 CAPSULE BY MOUTH EVERY DAY active Not Available Not Available No t Available tramadol 50 mg tablet TAKE 1 TABLET 3 TIMES A DAY BY ORAL ROUTE NEEDED. MAX 7 DAYS FOR FIRST FILL active Not Available Not Available No t Available triamcino lone acetonide 0.1 % topical cream APPLY DAILY TO RASH 06/18 completed Not Available Not Available Not Available simvastat in 40 mg tablet TAKE 1 TABLET BY MOUTH EVERY DAY active Not Available Not Available No t Available carvedilo l 3.125 mg tablet TAKE 1 TABLET BY MOUTH TWICE A DAY active Not Available Not Available No t Available hydrocort isone acetate 25 mg rectal supposito ry Insert 1 supposit ory twice a day by rectal route for 7 days. 04/03 completed Not Available Not Available Not Available potassium chloride ER 20 mEq tablet,ex tended release(p art/cryst ) TAKE 1 TABLET BY MOUTH EVERY DAY active Not Available Not Available No t Available Kenalog 10 mg/mL suspensio n for injection Take 4 mL by injectio n route. 2024 active [facility]: [phone] 4-20 Not Available Not Available Not Available pantopraz ole 40 mg tablet,de layed release Take 1 tablet every day by oral route. 06/09 completed Not Available Not Available Not Available triamcino lone acetonide 0.1 % topical ointment APPLY TO AFFECTED AREA TWICE A DAY DIRECTED 12/24 completed Not Available Not Available Not Available lansopraz ole 30 mg capsule,d elayed release active Not Available Not Available Not Available telmisart an 80 mg tablet TAKE 1 TABLET BY MOUTH EVERY DAY active Not Available Not Available No t Available monteluka st 10 mg tablet TAKE 1 TABLET BY MOUTH EVERY DAY 03/13 completed Not Available Not Available Not Available furosemid e 20 mg tablet TAKE 3 TABLETS BY MOUTH EVERY DAY active Not Available Not Available No t Available Levaquin 500 mg tablet Take 1 tablet every day by oral route for 10 days. 09/09 completed Not Available Not Available Not Available ergocalci ferol (vitamin D2) 1,250 mcg (50,000 unit) capsule TAKE 1 CAPSULE EVERY 2 WEEKS BY ORAL ROUTE. active Not Available Not Available No t Available methylpre dnisolone 4 mg tablets in a dose pack take decreasi ng doses as directed active Not Available Not Available No t Available albuterol sulfate HFA 90 mcg/actua tion aerosol inhaler INHALE 2 PUFFS BY MOUTH EVERY 4 HOURS NEEDED FOR WHEEZING / SHORTNES S OF BREATH 06/18 completed Not Available Not Available Not Available celecoxib 100 mg capsule TAKE 1 CAPSULE BY MOUTH TWICE A DAY active Not Available Not Available No t Available Cortispor in-TC 3.3 mg-3 mg-10 mg-0.5 mg/mL ear drops,saurabh pension 3 drops in affected ear x 1 week active Not Available Not Available No t Available losartan 100 mg tablet TAKE 1 TABLET BY MOUTH EVERY DAY 05/20 completed Not Available Not Available Not Available fluticaso ne propionat e 50 mcg/actua tion nasal spray,saurabh pension SPRAY 1 SPRAY INTO EACH NOSTRIL EVERY DAY 03/12 completed Not Available Not Available Not Available neomycin- polymyxin -hydrocor t 3.5 mg-10,000 unit/mL-1 % ear drops,saurabh p USE 4 DROPS IN THE LEFT EAR 4 TIMES A DAY active Not Available Not Available No t Available Fish Oil 11/28 completed Not Available Not Available Not Available Glucosami ne 05/25 completed Not Available Not Available Not Available multivita min 10/15 completed Not Available Not Available Not Available Glucosami ne Chondroit in MaxStr 2014 active Not Available Not Available Not Avai lable Calcium 600 + D(3) 10/15 completed Not Available Not Available Not Available lidocaine (PF) 10 mg/mL (1 %) injection solution In office injectio n administ ered by the provider 06/22 completed [facility]: [phone] 6-17 Not Available Not Available Not Available mesalamin e 1.2 gram tablet,de layed release TAKE 4 TABLETS BY MOUTH DAILY active Not Available Not Available No t Available CoQ-10 06/18 completed Not Available Not Available Not Available Align (B. is) 11/28 completed Not Available Not Available Not Available Suprep Bowel Prep Kit 17.5 gram-3.13 gram-1.6 gram oral solution USE DIRECTED 02/05 completed Not Available Not Available Not Available [facility] 03/12 completed Not Available Not Available Not Available ropivacai ne (PF) 5 mg/mL (0.5 %) injection solution Take 4 mg by injectio n route. 03/12 completed [facility] [phone] 4- Not Available Not Available Not Available Flucelvax Quad (PF) 60 mcg (15 mcg x 4)/0.5 mL IM syringe PHARMACY ADMINIST ERED 08/24 completed Not Available Not Available Not Available Paxlovid 300 mg (150 mg x 2)-100 mg tablets in a dose pack TAKE 3 TABLETS TWICE A DAY BY ORAL ROUTE FOR 5 DAYS. 10/28 completed Not Available Not Available Not Available COVID-19 At-Home Test kit FOLLOW INSTRUCT IONS INCLUDED WITH THE PACKAGE. 12/22 completed Not Available Not Available Not Available Mounjaro 2.5 mg/0.5 mL subcutane ous pen injector INJECT 2.5MG WEEKLY FOR 4 WKS THEN GO TO 5MG WEEKLY active Not Available Not Available No t Available Vitals Date Recorded Body height Body mass index (BMI) Body weight Pain severity - 0-10 verbal numeric rating [Score] - Reported Provider Name and Address Organization Details Last Updated DateTime 12/12/2023 152.4 cm 53.7 kg/m2 129011.9 g 9 Lawanda Vaughn [facility] 12/12/2023 10:55:57 Date Recorded Body height Body mass index (BMI) Body weight Pain severity - 0-10 verbal numeric rating [Score] - Reported Provider Name and Address Organization Details Last Updated DateTime 03/13/2024 152.4 cm 55.3 kg/m2 631306.64 g Umu Vaughn [facility] 03/13/2024 15:40:39 Date Recorded Body height Body mass index (BMI) Body weight Body temperature Heart rate Oxygen saturation Oxygen saturation in Arterial blood by Pulse oximetry Respiratory rate Heart rate Systolic blood pressure Diastolic blood pressure Provider Name and Address Organization Details Last Updated DateTime 152.4 cm 55.2 kg/m2 881245. 92 g 98.1 [degF] 64 /min 95 % 95 % 16 /min 64 /min 146 mm[Hg] 70 mm[Hg] Corinne Kilpatrick MA [facility] 12:15:02 Date Recorded Body height Body mass index (BMI) Body weight Pain severity - 0-10 verbal numeric rating [Score] - Reported Provider Name and Address Organization Details Last Updated DateTime 06/19/2024 152.4 cm 55.3 kg/m2 543309.64 g Umu Vaughn [facility] 06/19/2024 15:34:45 Date Recorded Body height Body mass index (BMI) Body weight Provider Name and Address Organization Details Last Updated DateTime 10/02/2024 154.94 cm 53.5 kg/m2 356272.64 g Cynthia Herring [place] - [facility] 10/02/2024 13:52:36 Social History Question Answer Notes LastModified by Organization Details LastModified Time Tobacco Smoking Status Never Smoker Not Available [facility] 10/05/2022 04:15:53 Do You Have An Advance Directive? No [id number] Information not available 10/05/2022 What Is Your Level Of Alcohol Consumption? 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 Heavy MIGRATION.0301 [id number] Information not available 10/05/2022 How Much Tobacco Do You Chew? None MIGRATION.0301 [id number] Information not available 10/05/2022 In The 14 Days Before Symptom Onset, Have You Had Close Contact With A Laboratory-confi rmed COVID-19 While That Case Was Ill? No MIGRATION.0301 [id number] Information not available 10/05/2022 In The 14 Days Before Symptom Onset, Have You Had Close Contact With A Person Who Is Under Investigation For COVID-19 While That Person Was Ill? No MIGRATION.0301 [id number] Information not available 10/05/2022 Are You Deaf Or Do You Have Serious Difficulty Hearing? No MIGRATION.0301 [id number] Information not available 10/05/2022 What Type Of Diet Are You Following? REGULAR MIGRATION.0301 [id number] Information not available 10/05/2022 Which Illicit Or Recreational Drugs Have You Used? None MIGRATION.0301 [id number] Information not available 10/05/2022 Do You Or Have You Ever Used E-cigarettes Or Vape? Never Used Electronic Cigarettes [email or web address].030 [id number] Information not available 10/05/2022 What Is The Highest Grade Or Level Of School You Have Completed Or The Highest Degree You Have Received? [id number] MIGRATION.030 [id number] Information not available 10/05/2022 Have There Been Any Changes To Your Family Or Social Situation? No MIGRATION.030 [id number] Information not available 10/05/2022 What Is The Fluoride Status Of Your Home? Unknown MIGRATION.030 [id number] Information not available 10/05/2022 Are There Any Guns Present In Your Home? No MIGRATION.0301 [id number] Information not available 10/05/2022 Do You Use Insect Repellent Routinely? No MIGRATION.0301 [id number] Information not available 10/05/2022 Where Do You Live? [place]House MIGRATION.0301 [id number] Information not available 10/05/2022 Do You Have A Medical Power Of Refining Supervisor? No MIGRATION.0301 [id number] Information not available 10/05/2022 What Was The Date Of Your Most Recent Tobacco Screening? 03/13/2024 [email or web address] Information not available 03/13/2024 Have You Ever Been Counseled For Unhealthy Alcohol Use? No MIGRATION.0301 [id number] Information not available 10/05/2022 Do You Have Any Pets? No MIGRATION.0301 [id number] Information not available 10/05/2022 What Is Your Relationship Status? MIGRATION.0301 [id number] Information not available 10/05/2022 Do You Use Your Seat Belt Or Car Seat Routinely? Yes MIGRATION.0301 [id number] Information not available 10/05/2022 Do You Have Smoke And Carbon Monoxide Detectors In Your Home? Yes MIGRATION.0301 012516 Information not available 10/05/2022 Are You Passively Exposed To Smoke? No MIGRATION.0301 609687 Information not available 10/05/2022 Do You Or Have You Ever Used Smokeless Tobacco? Never Used Smokeless Tobacco MIGRATION.0301 812208 Information not available 10/05/2022 Are There Any Smokers In Your House? No MIGRATION.0301 054130 Information not available 10/05/2022 How Much Tobacco Do You Smoke? No MIGRATION.0301 089738 Information not available 10/05/2022 What Types Of Sporting Activities Do You Participate In? None MIGRATION.0301 234423 Information not available 10/05/2022 Do You Feel Stressed (tense, Restless, Nervous, Or Anxious, Or Unable To Sleep At Night)? [id number] MIGRATION.0301 734991 Information not available 10/05/2022 Do You Use Any Illicit Or Recreational Drugs? No MIGRATION.0301 809527 Information not available 10/05/2022 Do You Use Sunscreen Routinely? Yes MIGRATION.0301 239651 Information not available 10/05/2022 Has Tobacco Cessation Counseling Been Provided? No Not Needed-n ever Smoked MIGRATION.0301 931819 Information not available 10/05/2022 How Many Years Have You Smoked Tobacco? 0 MIGRATION.0301 032490 Information not available 10/05/2022 Have You Recently Traveled Abroad? No MIGRATION.0301 894320 Information not available 10/05/2022 Do You Have Any Dietary Restrictions? No MIGRATION.0301 846744 Information not available 10/05/2022 Do You Or Have You Ever Used Any Other Forms Of Tobacco Or Nicotine? No MIGRATION.0301 288833 Information not available 10/05/2022 Sex: Female Functional Status Question Answer Note LastModified by Organizat ion Details LastModified Time Do you have difficulty walking or climbing stairs? Yes MIGRATION.462091 0099 Information not available 10/05/2022 Do you have transportation difficulties? No MIGRATION.512058 3180 Information not available 10/05/2022 Are you able to walk? YESASSIST uses walker MIGRATION.946455 6321 Information not available 10/05/2022 Do you have difficulty doing errands alone? No MIGRATION.673500 3638 Information not available 10/05/2022 Are you able to care for yourself? Yes MIGRATION.002077 5583 Information not available 10/05/2022 Do you have difficulty dressing or bathing? No MIGRATION.165061 8854 Information not available 10/05/2022 What is your exercise level? None MIGRATION.871244 2979 Information not available 10/05/2022 Mental Status Question Answer Note LastModified by Organizat ion Details LastModified Time Do you have difficulty concentrating, remembering or making decisions? No MIGRATION.[id number] 6 Information not available 10/05/2022 Family History Relationship Description Onset Age of this Age Resolved Age Notes LastModified by Organization Details LastModified Time Father Diabetes mellitus MIGRATION.597 [id number] Not available 10/05/2022 04:42:36 Father Malignant neoplastic disease 83 MIGRATION.502 1087134 Not available 10/05/2022 04:42:36 Father Heart disease MIGRATION.394 1046353 Not available 10/05/2022 04:42:36 Sister Carcinoma of breast MIGRATION.517 7744697 Not available 10/05/2022 04:42:36 Sister Diabetes mellitus MIGRATION.070 9913155 Not available 10/05/2022 04:42:37 Sister Pulmonary embolism MIGRATION.695 9003414 Not available 10/05/2022 04:42:37 Mother Carotid artery stenosis MIGRATION.486 0031019 Not available 10/05/2022 04:42:37 Mother Diabetes mellitus MIGRATION.845 [id number] Not available 10/05/2022 04:42:37 Mother Cerebrovascu lar accident MIGRATION.274 [id number] Not available 10/05/2022 04:42:37 Brother Malignant tumor of spinal cord MIGRATION.858 [id number] Not available 10/05/2022 04:42:37 Brother Myocardial infarction 52 MIGRATION.626 [id number] Not available 10/05/2022 04:42:37 Medical History Condition Response NERVE DISEASE N BLINDNESS N RHEUMATIC FEVER N KIDNEY STONES N BLADDER PROBLEMS N MRSA N OTHER # 1 Y POLIO N LUNG DISEASE/DISORDER N COPD N RADIATION / CHEMOTHERAPY N Other # 2 N BLOOD DISEASES N EAR OR HEARING PROBLEMS N MUMPS N BOWEL PROBLEMS Y DEPRESSION (INCLUDING POST ) N STROKE/TIA N ULCERS N BENIGN PROSTATIC HYPERPLASIA N MEASLES N MYOCARDIAL INFARCTION N OBESITY Y GERD/NAUSEA N ANEURYSM N URINARY/BLADDER/KIDNEY PROBLEMS Y CORONARY ARTERY DISEASE (CAD) N ADDICTION CONCERNS N ENDOMETRIOSIS N Impotence N USE OF BLOOD THINNERS N SKIN PROBLEMS Y GASTROINTESTINAL DISORDER N PERIPHERAL VASCULAR DISEASE N MUSCLE,JOINT OR BONE PROBLEMS N GASTROINTESTINAL BLEEDING N BLOOD CLOTS N ASTHMA N CATARACTS N ERECTILE DYSFUNCTION N VARICOSITIES N GI PROBLEMS N Low Testosterone N INFERTILITY N AIDS/HIV N CHEMOTHERAPY / RADIATION N LIVER DISEASE N MALE HYPOGONADISM N HYPERTENSION Y Deficiency Y TOURETTE'S N ANXIETY DISORDER N BLOOD TRANSFUSION N ANEMIA/BLOOD DISORDER N CHRONIC EAR INFECTIONS N BRONCHITIS N TUBERCULOSIS N GLAUCOMA N FOOT PROBLEM N DIVERTICULITIS N SLEEP APNEA N CHICKENPOX N INFECTIOUS DISEASE N HEART ARRHYTHMIA N PROSTATE N INSOMNIA N HIGH CHOLESTEROL / HYPERLIPIDEMIA Y HYPERTHYROIDISM N EYE PROBLEMS N EDEMA N CHRONIC PAIN SYNDROME N HYPOTHYROIDISM N CAROTID BLOCKAGE N CONSTIPATION N BACK / NECK PROBLEMS N HAVE YOU BEEN HOSPITALIZED OR SEEN IN [facility] IN THE PAST YEAR ? N ATHEROSCLEROSIS N BREAST PROBLEMS N DIALYSIS N ECZEMA N OSTEOPOROSIS N ARTHRITIS Y APPENDICITIS N DIABETES, TYPE Y BAD TEETH N ENT N HEARTBURN / REFLUX Y AUTISM SPECTRUM DISORDER (ASD) N HEPATITIS / LIVER DISEASE N GOUT N SLEEP DISORDER N ALZHEIMER'S DISEASE N Brain Problems N HERPES N DEMENTIA N HEADACHES/MIGRAINES N SEIZURES/EPILEPSY N VASCULAR DISEASE N PACEMAKER N Blood Disorder N DIZZINESS N HEART DISEASE/HEART PROBLEMS N KIDNEY DISEASE N MULTIPLE SCLEROSIS N CARDIAC ARRHYTHMIA N CANCER: SPECIFY N ATRIAL FIBRILLATION N Gall Stones N PULMONARY EMBOLISM N AUTOIMMUNE DISEASE N Gynecological History Statement/Question Response Date of Last Pap 08/09/2017 Date of Last Mammogram 07/19/2021 Current Control Method Menopause Date of Last Colonoscopy 07/07/2021 Most Recent Mammogram 07/19/2021 Most Recent Bone Density 03/13/2014 Obstetrics History GPAL:G 3 P 3 0 0 3 Type Value Full Term 3 Living 3 Total 3 Immunizations Vaccine Type Date Status Note Provider Nam e and Address Organization Details Recorded Time SARS-COV-2 (COVID-19) vaccine, UNSPECIFIED 3 completed Meño Zamora RMDamon canas, [facility] [employer] 05/25/2023 10:29:53 influenza, unspecified formulation 3 completed Meño Zamora RMA null, [employer] 05/25/2023 10:30:01 COVID-19, mRNA, LNP-S, PF, 100 mcg/0.5mL dose or 50 mcg/0.25mL dose 1 completed Not Available [facility] 01/12/2023 10:53:17 COVID-19, mRNA, LNP-S, PF, 100 mcg/0.5mL dose or 50 mcg/0.25mL dose 1 completed Not Available [facility] 01/12/2023 10:53:17 COVID-19, mRNA, LNP-S, PF, 100 mcg/0.5mL dose or 50 mcg/0.25mL dose 1 completed Not Available [facility] 01/12/2023 10:53:17 Influenza, split virus, quadrivalent, preservative 0 completed Not Available [facility] 01/12/2023 10:53:17 Influenza, split virus, quadrivalent, preservative 8 completed Not Available [facility] 01/12/2023 10:53:17 Influenza, split virus, quadrivalent, preservative 7 completed Not Available [facility] 01/12/2023 10:53:17 COVID-19, mRNA, LNP-S, PF, 30 mcg/0.3 mL dose 2 completed Not Available [facility] 01/12/2023 10:53:17 Influenza, high-dose, trivalent, PF 2 completed Not Available [facility] 01/12/2023 10:53:17 COVID-19, mRNA, LNP-S, PF, 100 mcg/0.5mL dose or 50 mcg/0.25mL dose 2 completed Not Available [facility] 01/12/2023 10:53:17 Pneumococcal conjugate PCV20, polysaccharide OUF334 conjugate, adjuvant, PF 2 completed Not Available [facility] 01/12/2023 10:53:17 Past Encounters Encounter ID Performer Location Encounter Start Date Encounter Closed Date Diagnosis/Indication Diagnosis SNOMED-CT Code Diagnosis ICD10 Code Diagnosis Note [id number] [facility] [address] [place] [address] 11/17/2020 00:00:00 11/17/2020 17:07:43 [id number] [facility] [address] [place] [address] 12/24/2020 00:00:00 12/26/2020 20:13:09 [id number] [facility] [place] [address] [place] [address] 12/29/2020 00:00:00 12/29/2020 15:45:54 [id number] [facility] [place] [address] [place] [address] 04/20/2021 00:00:00 04/20/2021 14:19:34 [id number] [facility] [place] [address], [place] [address] 06/22/2021 00:00:00 07/07/2021 21:57:24 [id number] [facility] [place] [address] [place] [address] 08/10/2021 00:00:00 08/10/2021 13:57:30 [id number] [facility] [place] [address] , [place] [address] 10/19/2021 00:00:00 10/19/2021 21:07:39 [id number] [facility] [place] [address] [place] [address] 11/09/2021 00:00:00 11/09/2021 16:54:25 [id number] [facility] [place] [address] [place] [address] 02/23/2022 00:00:00 02/23/2022 16:54:16 [id number] [facility] [place] [address] [facility] [address] , [place] [address] 03/01/2022 00:00:00 03/05/2022 20:47:22 [id number] [facility] [place] [address] [place] [address] 06/07/2022 00:00:00 06/07/2022 16:25:48 [id number] [facility] [place] [address] [facility] [address] , [place] [address] 06/09/2022 00:00:00 06/11/2022 13:58:45 [id number] [facility] [place] [address] [place] [address] 07/05/2022 00:00:00 07/05/2022 17:03:14 [id number] [facility] [place] [address] , [place] [address] 08/30/2022 00:00:00 08/30/2022 21:29:50 [id number] [facility] [place] [address] [place] [address] 09/06/2022 00:00:00 09/06/2022 15:26:58 [id number] Aparna Damon WAFER POLISHER-BC [facility] [place] [address] [place] [address] 10/28/2022 10:50:11 10/31/2022 08:32:52 Obstructive sleep apnea syndrome 87101889 G47.33 Home study 03/2022 with AHI 80In lab titration with best pressure obtainedMa chine set up 05/25/22Do wnload today with 100% use greater than 4 hours.She is on PAP 12cm H2OAHI is 2.1ESS 9She has good use and clinical benefitOSA is well correctedE ncouraged 100% compliance with all sleepFollo w with PCM for labsAdvise d good sleep habits and patterns:- Set a goal for at least 7 to 8 hours of sleep time per day.-Use the bed mainly for sleep and to go to bed only when tired. If unable to fall asleep after 30 minutes, patient should get out of bed but should not engage in any activity that requires sustained mental alertness. -Maintain a regular bedtime and wake-up time even on weekends-A void excessive naps during the daytime. If a nap is necessary, limit it to no more than 30 minutes.-M inimize environmen kelby noise, bright lights, and extremes in bedroom temperatur e.-Avoid alcohol, caffeinate d beverages, and nicotine products for at least 6 hours prior to bedtime.-A void strenuous exercise and large meals for at least 4 hours prior to bedtime.Or durga for travel PAP machine todayOrder for small nasal pillows todayDiscu ssed supply cleaning and reordering She is aware of reportable signs and symptomsRT C in 6 months History of SARS-CoV-2 29 [id number] 41243923 Z86.16 +Decemberersis tent symptomsI have instructed her to reach out to PCM and I would be happy to assist with workup if requested Body mass index 40+ - severely obese 248110523 Z68.43 Discussed weight management .Healthy well balanced meals. Increase exercise, ideally 30 minutes most days of the week. [id number] Roman Silver MD [facility] [place] [address] [facility] [address] , [place] [address] 12/22/2022 13:56:10 12/22/2022 14:46:34 Ulcerative colitis 42818034 K51.90 Venous stasis 16120402 I 87.8 Essential hypertension 19421271 I10 Dyspnea 527760245 R06.02 [id number] Gerber Maurer MD [facility] [place] [address] [place] [address] 12/27/2022 14:32:39 12/27/2022 15:25:22 Osteoarthritis 256840542 M19.012 sterile technique standard protocol injected 8 cc xylocaine 2 cc of Kenalog into the glenohumer al joint I will see her back in 3 or 4 months for follow-up [id number] Trent Ibarra MD [facility] [place] [address] [place] [address] 04/26/2023 10:50:19 04/26/2023 11:18:55 Localized, primary osteoarthritis of the shoulder region 675672325 M19.218 [id number] Roman Silver MD [facility] Internal Med [facility] [address] [facility] [address], [facility] [place] [address] 04/27/2023 13:57:49 04/27/2023 15:04:53 Cough 66467905 R05.9 Essential hypertension 03920599 I10 Ulcerative colitis 82693 004 K51.90 Gastroesop hageal reflux disease 504294865 K21.9 Venous stasis 27871221 I 87.8 Pure hypercholesterolemia 722743566 E78.[id number] [facility] Pul[facility] [place] [address] [place] [address] 05/01/2023 14:40:02 05/01/2023 15:39:33 Obstructive sleep apnea syndrome 29943932 G47.33 Home study 03/2022 with AHI 80In lab titration with best pressure obtainedMa chine set up 05/25/22Do wnload today with 97% use greater than 4 hours.She is on PAP 12cm H2OAHI is 1.6ESS 9She has good use and clinical benefitOSA is well correctedE ncouraged 100% compliance with all sleepFollo w with PCM for labsAdvise d good sleep habits and patterns:- Set a goal for at least 7 to 8 hours of sleep time per day.-Use the bed mainly for sleep and to go to bed only when tired. If unable to fall asleep after 30 minutes, patient should get out of bed but should not engage in any activity that requires sustained mental alertness. -Maintain a regular bedtime and wake-up time even on weekends-A void excessive naps during the daytime. If a nap is necessary, limit it to no more than 30 minutes.-M inimize environmen kelby noise, bright lights, and extremes in bedroom temperatur e.-Avoid alcohol, caffeinate d beverages, and nicotine products for at least 6 hours prior to bedtime.-A void strenuous exercise and large meals for at least 4 hours prior to bedtime.Or durga for travel PAP machine todayOrder for small nasal pillows todayDiscu ssed supply cleaning and reordering She is aware of reportable signs and symptomsSH e should follow up in 1 year Body mass index 40+ - severely obese 770735815 Z68.43 Discussed weight management .Healthy well balanced meals.Incr ease exercise, ideally 30 minutes most days of the week. [id number] Trent Ibarra MD [facility] [place] [address] [place] [address] 09/06/2023 14:43:21 09/06/2023 15:18:30 Localized, primary osteoarthritis of the shoulder region 905886709 M19.184 [id number] Trent Ibarra MD [facility] [place] [address] [place] [address] 12/12/2023 10:53:32 12/12/2023 11:05:08 Localized, primary osteoarthritis of the shoulder region 569428602 M19.647 [id number] Trent Ibarra MD [facility] [place] [address] [place] [address] 03/13/2024 15:24:15 03/13/2024 16:01:10 Localized, primary osteoarthritis of the shoulder region 078827637 M19.231 [id number] Giovanna De Los Santos NP [facility] [address] [place] [address] 05/01/2024 11:54:25 05/02/2024 14:50:06 Obstructive sleep apnea syndrome 85540879 G47.33 Home study 03/2022 with AHI 80In lab titration with best pressure obtainedMa chine set up 05/25/22Do wnload today with 88% use greater than 4 hours-did take travel CPAP on her vacationSh e is on PAP 12cm H2OAHI is 1.7She has good use and clinical benefitOSA is well correctedE ncouraged 100% compliance with all sleepFollo w with PCM for labsAdvise d good sleep habits and patterns:- Set a goal for at least 7 to 8 hours of sleep time per day.-Use the bed mainly for sleep and to go to bed only when tired. If unable to fall asleep after 30 minutes, patient should get out of bed but should not engage in any activity that requires sustained mental alertness. -Maintain a regular bedtime and wake-up time even on weekends-A void excessive naps during the daytime. If a nap is necessary, limit it to no more than 30 minutes.-M inimize environmen kelby noise, bright lights, and extremes in bedroom temperatur e.-Avoid alcohol, caffeinate d beverages, and nicotine products for at least 6 hours prior to bedtime.-A void strenuous exercise and large meals for at least 4 hours prior to bedtime.Or durga for travel PAP machine todayOrder for small nasal pillows todayDiscu ssed supply cleaning and reordering She is aware of reportable signs and symptomsSh e should follow up in 1 year Body mass index 40+ - severely obese 301376592 Z68.43 Encourage healthy diet and exercise to improve weightdisc ussed weight effect on sleep and sleep apnea Fatigue 78521425 R53.83 Encourage her to find ways to exercise moreFollow -up with primary to discuss fatigue and decreased exercise capacity with sob-PFT last year was normal-str seema family hx of [place] [id number] Lexi Plascencia NP [facility] [place] [address] [place] [address] 06/19/2024 15:32:13 06/19/2024 16:10:24 Localized, primary osteoarthritis of the shoulder region 357454421 M19.334 [id number] Cheli Aguilera PA-C [facility] [place] [address] [place] [address] 10/02/2024 13:49:08 10/02/2024 14:25:55 Localized, primary osteoarthritis of the shoulder region 149400249 M19.012 Health Concerns Section Related Observation LastModified by Organization Detai ls LastModified Time None Recorded Concern Status LastModified by Organization Details LastModified Time None Recorded Advance Directives Directive N: Payers Encounter Date Sequence Insurance Name Policy Number Policy Hernandez Covered Member ID Hernandez Member ID Guarantor Name 12/12/2023 1 [place] Ronel L Grayland [id number] Ronel Vazquez Shu 12/12/2023 2 [employer] - CHOICE (POS II) [id number] Ronel L Grayland [id number] Ronel Edwardsn Shu 03/13/2024 1 [place] Ronel L Grayland [id number] 23 Ronel Edwardsn Shu 03/13/2024 2 [employer] - CHOICE (POS II) [id number] Ronel L Grayland [id number] Ronel Taylor Shu 05/01/2024 1 [place] Ronel L Shu [id number] 23 Ronel Edwardsn Shu 05/01/2024 2 [employer] - CHOICE (POS II) [id number] Ronel L Shu [id number] Ronel Taylor Shu 06/19/2024 1 [place] Ronel L Grayland [id number] 23 Ronel Taylor Shu 06/19/2024 2 [employer] - CHOICE (POS II) [id number] Ronel L Shu [id number] Ronel Taylor Grayland 10/02/2024 1 [place] Ronel L Grayland [id number] 23 Ronel Taylor Shu 10/02/2024 2 [employer] - CHOICE (POS II) [id number] Ronel L Shu [id number] Ronel Taylor Shu Notes Date Note Type Note Provider Name and Address Organization Details Recorded Time 05/01/2024 text/html CPAP F/UReported bypatient.CPAPPati ent is using CPAP and estimates 6 hours of PAP use nightly.; No problems with CPAP; mask does not leak; no trouble with sleep initiation; no problems with sleep maintenance; does not remove CPAP mask during the night; does not wake up in the middle of the night with dry mouth; no snoring through the mask; no aerophagia; no abdominal discomfort; no skin irritation; no ear pain; no ear pressure; no nasal congestion; sleep related symptoms have markedly improved; wakes up rested; no excessive daytime sleepiness; no headache; no memory loss; weight is stableNotes:Patipaige t notes the past few months more fatigue and sob, notes that she has just got back from a vacation to [place] and home remodeling done and feels some of the fatigue is related to that-she denies chest pain or palpitations Giovanna De Los Santos NP [address] [address], [place], [address], [facility] [employer] [facility] 05/01/2024 14:10:09 OBGyn Episode No OBEpisode recorded.
--- OUTSIDE RECORDS SUMMARY | 2024-10-17 00:19 | XMS_ITS | Data Portability ---
Author Organization [facility] Address [address] [place] [address] Care Team Providers Care Cost Accounting Clerk Name Role Phone ROMAN SILVER Primary Care Provider Unavailabl e Assessment Encounter Date Assessment Date Assessment LastModified by Organization Details LastModified Time 11/06/2023 11/06/2023 We will continue current therapy with blood work to evaluate her medical problems we will add Singulair because of some sinus drainage [email or web address] Not available 11/07/2023 14:05:04 03/18/2024 03/18/2024 continue current therapy really can not use a whole lot Tylenol not helping for pain anti-inflamma tories not a good choice because of her stomach we are going to try a little bit of tramadol 50 mg b.i.d. p.r.n. side effects discussed consider gabapentin if this does not work blood work has been ordered she will follow up with me in about 3 or 4 months [email or web address] Not available 03/18/2024 23:35:31 07/25/2024 07/25/2024 blood work. GLP 1 agent and titrate she will consider. Healthy lifestyle care instructions. Flu shot. Other medicines we will continue we will review the blood work when it becomes available see me in 4 months [email or web address] Not available 07/27/2024 17:17:44 Plan of Treatment Reminders Order Date Submit Date Provider Last Modified By Organization Details Last Modified Time Details Appointments ANY 15 2024 01:00P Lisa Silver MD Not available Not available Not available Lab HbA1c (hemoglob in A1c), blood 2023 024 [facility], [address], [place], [address], 09/05/2024 07:08:46 lipid panel, serum 2023 024 [facility], [address], [address], [place], [address], 09/05/2024 07:08:44 CMP, serum or plasma 2023 024 [facility], [address], [place], [address], 09/05/2024 07:08:45 CBC w/ auto diff 2023 024 [facility], [address], [place], [address], 09/05/2024 07:08:47 HbA1c (hemoglob in A1c), blood 2023 024 [facility], [address], [place], [address], 05/10/2024 08:25:05 lipid panel, serum 2023 024 [facility], [address], [place], [address], 05/10/2024 08:25:03 CMP, serum or plasma 2023 024 [facility], [address], [place], [address], 05/10/2024 08:25:04 CBC w/ auto diff 2023 024 [facility], [address], [place], [address], 05/10/2024 08:25:06 HbA1c (hemoglob in A1c), blood 2023 024 [facility], [address], [place], [address], 11/07/2023 11:15:12 CBC w/ auto diff 2023 024 [facility], [address], [address], [place], [address], 11/07/2023 11:15:14 lipid panel, serum 2023 024 [facility], [address], [place], [address], 11/07/2023 11:15:10 CMP, serum or plasma 2023 024 [facility], [address], [place], [address], 11/07/2023 11:15:11 TSH, ultra-sen sitive, serum 2023 024 [facility], [address], [place], [address], 11/07/2023 11:15:13 T3, free, serum or plasma 2023 024 [facility], [address], [address], [place], [address], 11/07/2023 11:15:14 unlisted lab - T4, free 2023 [facility], [address], [place], [address], 11/07/2023 11:15:10 Referral None recorded. Procedures None recorded. Surgeries None recorded. Imaging None recorded. Medication Orders Mounjaro 2.5 mg/0.5 mL subcutane ous pen injector 2023 [facility] #[id number], [address] [place], [address], 07/25/2024 17:33:51 Patient TargetsNo targets recorded. Patient Instructions Encounter Date Encounter Id Patient Instructions Last Modified By Organization Details Last Modified Time 07/25/2024 [id number] A healthy lifestyle: care instructions [email or web address] Not available 07/25/2024 15:33:02 Reason for Referral None Reported. Results Created Date Observation Date Name Description Value Unit Range Abnormal Flag Note LastModifiedBy Organization Detail LastModifiedTime 11/06/19 24 11/07/2023 LIPID PANEL cholesterol, total 209 mg/dL 100-19 9 above high normal Not Available [facility] ([facility]) [address] [place], [address], 11/07/2023 11:15:09 11/06/19 24 11/07/2023 LIPID PANEL triglyceride s 116 mg/dL 0-149 Not Available [facility] ([facility]) [address] [place], [address], 11/07/2023 11:15:09 11/06/19 24 11/07/2023 LIPID PANEL HDL cholesterol 66 mg/dL >39 Not Available [facility] ([facility]) [address] [place], [address], 11/07/2023 11:15:09 11/06/19 24 11/07/2023 LIPID PANEL VLDL cholesterol benjamin 20 mg/dL 5-40 Not Available [facility] ([facility]) [address] [place], [address], 11/07/2023 11:15:09 11/06/19 24 11/07/2023 LIPID PANEL LDL chol calc ([facility]) 123 mg/dL 0-99 above high normal Not Available [facility] ([facility]) [address] [place], [address], 11/07/2023 11:15:09 11/06/19 24 11/07/2023 T4, FREE T4,free(dire ct) 1.27 NG/dL 0.82-1 .77 Not Available [facility] ([facility]) [address] [place], [address], 11/07/2023 11:15:10 11/06/19 24 11/07/2023 COMP. METAB OLIC PANEL (14) glucose 103 mg/dL 70-99 above high normal Not Available [facility] ([facility]) [address] [facility] [place], [address], 11/07/2023 11:15:11 11/06/19 24 11/07/2023 COMP. METAB OLIC PANEL (14) BUN 13 mg/dL 8-27 Not Available [facility] ([facility]) [address] [facility] [place], [address], 11/07/2023 11:15:11 11/06/19 24 11/07/2023 COMP. METAB OLIC PANEL (14) creatinine 0.63 mg/dL 0.76-1 .27 below low normal Not Available [facility] ([facility]) [address] [facility] [place], [address], 11/07/2023 11:15:11 11/06/19 24 11/07/2023 COMP. METAB OLIC PANEL (14) eGFR 104 mL/mi n/1.7 3 >59 Not Available [facility] ([facility]) [address] [facility] [place], [address], 11/07/2023 11:15:11 11/06/19 24 11/07/2023 COMP. METAB OLIC PANEL (14) BUN/creatini ne ratio 21 10-24 Not Available [facility] ([facility]) [address] [facility] [place], [address], 11/07/2023 11:15:11 11/06/19 24 11/07/2023 COMP. METAB OLIC PANEL (14) sodium 140 mmol/ L 134-14 4 Not Available [facility] ([facility]) [address] [facility] [place] [place], [address], 11/07/2023 11:15:11 11/06/19 24 11/07/2023 COMP. METAB OLIC PANEL (14) potassium 4.8 mmol/ L 3.5-5. 2 Not Available [facility] ([facility]) [address] [place], [address], 11/07/2023 11:15:11 11/06/19 24 11/07/2023 COMP. METAB OLIC PANEL (14) chloride 102 mmol/ L 96-106 Not Available [facility] ([facility]) [address] [facility], [place], [address], 11/07/2023 11:15:11 11/06/19 24 11/07/2023 COMP. METAB OLIC PANEL (14) carbon dioxide, total 25 mmol/ L 20-29 Not Available [facility] ([facility]) [address] [facility], [place], [address], 11/07/2023 11:15:11 11/06/19 24 11/07/2023 COMP. METAB OLIC PANEL (14) calcium 9.3 mg/dL 8.6-10 .2 Not Available [facility] ([facility]) [address] [place], [address], 11/07/2023 11:15:11 11/06/19 24 11/07/2023 COMP. METAB OLIC PANEL (14) protein, total 7.0 g/dL 6.0-8. 5 Not Available [facility] ([facility]) [address] [place], [address], 11/07/2023 11:15:11 11/06/19 24 11/07/2023 COMP. METAB OLIC PANEL (14) albumin 4.5 g/dL 3.9-4. 9 Not Available [facility] ([facility]) [address] [place], [address], 11/07/2023 11:15:11 11/06/19 24 11/07/2023 COMP. METAB OLIC PANEL (14) globulin, total 2.5 g/dL 1.5-4. 5 Not Available [facility] ([facility]) [address] [facility] [place], [address], 11/07/2023 11:15:11 11/06/19 24 11/07/2023 COMP. METAB OLIC PANEL (14) A/G ratio 1.8 1.2-2. 2 Not Available [facility] ([facility]) [address] [facility] [place], [address], 11/07/2023 11:15:11 11/06/19 24 11/07/2023 COMP. METAB OLIC PANEL (14) bilirubin, total 0.6 mg/dL 0.0-1. 2 Not Available [facility] ([facility]) [address] [facility] [place], [address], 11/07/2023 11:15:11 11/06/19 24 11/07/2023 COMP. METAB OLIC PANEL (14) alkaline phosphatase 70 IU/L 44-121 Not Available [facility]) [address] [facility] [place], [address], 11/07/2023 11:15:11 11/06/19 24 11/07/2023 COMP. METAB OLIC PANEL (14) AST (SGOT) 20 IU/L 0-40 Not Available [facility] ([facility]) [address] [facility] [place] [place], [address], 11/07/2023 11:15:11 11/06/19 24 11/07/2023 COMP. METAB OLIC PANEL (14) ALT (SGPT) 19 IU/L 0-44 Not Available [facility] ([facility]) [address] [facility] [place] [place], [address], 11/07/2023 11:15:11 11/06/19 24 11/07/2023 HEMOG LOBIN A1C hemoglobin A1C 6.3 % 4.8-5. 6 above high normal Predi abete s: 5.7 - 6.4 Diabe russ: >6.4 Glyce collins contr ol for adult s with diabe russ: <7.0 Not Available [facility] ([facility]) [address] [place], [address], 11/07/2023 11:15:12 11/06/19 24 11/07/2023 TSH TSH 0.928 uIU/m L 0.450- 4.500 Not Available [facility] ([facility]) [address] [place], [address], 11/07/2023 11:15:13 11/06/19 24 11/07/2023 CBC WITH DIFFE RENTI AL/PL ATELE T WBC 5.5 x10e3 /uL 3.4-10 .8 Not Available [facility] ([facility]) [address] [place], [address], 11/07/2023 11:15:14 11/06/19 24 11/07/2023 CBC WITH DIFFE RENTI AL/PL ATELE T RBC 4.23 x10e6 /uL 4.14-5 .80 Not Available [facility] ([facility]) [address] [place], [address], 11/07/2023 11:15:14 11/06/19 24 11/07/2023 CBC WITH DIFFE RENTI AL/PL ATELE T hemoglobin 12.5 g/dL 13.0-1 7.7 below low normal Not Available [facility] ([facility]) [address] [place], [address], 11/07/2023 11:15:14 11/06/19 24 11/07/2023 CBC WITH DIFFE RENTI AL/PL ATELE T hematocrit 37.5 % 37.5-5 1.0 Not Available [facility] ([facility]) [address] [place], [address], 11/07/2023 11:15:14 11/06/19 24 11/07/2023 CBC WITH DIFFE RENTI AL/PL ATELE T MCV 89 fL 79-97 Not Available [facility] ([facility]) [address] [facility], [place], [address], 11/07/2023 11:15:14 11/06/19 24 11/07/2023 CBC WITH DIFFE RENTI AL/PL ATELE T MCH 29.6 pg 26.6-3 3.0 Not Available [facility] ([facility]) [address] [facility], [place], [address], 11/07/2023 11:15:14 11/06/19 24 11/07/2023 CBC WITH DIFFE RENTI AL/PL ATELE T MCHC 33.3 g/dL 31.5-3 5.7 Not Available [facility] ([facility]) [address] [facility], [place], [address], 11/07/2023 11:15:14 11/06/19 24 11/07/2023 CBC WITH DIFFE RENTI AL/PL ATELE T RDW 14.1 % 11.6-1 5.4 Not Available [facility] ([facility]) [address] [facility], [place], [address], 11/07/2023 11:15:14 11/06/19 24 11/07/2023 CBC WITH DIFFE RENTI AL/PL ATELE T platelets 360 x10e3 /uL 150-45 0 Not Available [facility] ([facility]) [address] [facility], [place], [address], 11/07/2023 11:15:14 11/06/19 24 11/07/2023 CBC WITH DIFFE RENTI AL/PL ATELE T neutrophils 54 % notest ab. Not Available [facility] ([facility]) [address] [facility], [place], [address], 11/07/2023 11:15:14 11/06/19 24 11/07/2023 CBC WITH DIFFE RENTI AL/PL ATELE T lymphs 32 % notest ab. Not Available [facility] ([facility]) [address] [facility], [place], [address], 11/07/2023 11:15:14 11/06/19 24 11/07/2023 CBC WITH DIFFE RENTI AL/PL ATELE T monocytes 9 % notest ab. Not Available [facility] ([facility]) [address] [facility], [place], [address], 11/07/2023 11:15:14 11/06/19 24 11/07/2023 CBC WITH DIFFE RENTI AL/PL ATELE T eos 4 % notest ab. Not Available [facility] ([facility]) [address] [facility], [place], [address], 11/07/2023 11:15:14 11/06/19 24 11/07/2023 CBC WITH DIFFE RENTI AL/PL ATELE T basos 1 % notest ab. Not Available [facility] ([facility]) [address] [facility], [place], [address], 11/07/2023 11:15:14 11/06/19 24 11/07/2023 CBC WITH DIFFE RENTI AL/PL ATELE T neutrophils (absolute) 3.0 x10e3 /uL 1.4-7. 0 Not Available [facility] ([facility]) [address] [place], [address], 11/07/2023 11:15:14 11/06/19 24 11/07/2023 CBC WITH DIFFE RENTI AL/PL ATELE T lymphs (absolute) 1.8 x10e3 /uL 0.7-3. 1 Not Available [facility] ([facility]) [address] [facility], [place], [address], 11/07/2023 11:15:14 11/06/19 24 11/07/2023 CBC WITH DIFFE RENTI AL/PL ATELE T monocytes(ab solute) 0.5 x10e3 /uL 0.1-0. 9 Not Available [facility] ([facility]) [address] [place], [address], 11/07/2023 11:15:14 11/06/19 24 11/07/2023 CBC WITH DIFFE RENTI AL/PL ATELE T eos (absolute) 0.2 x10e3 /uL 0.0-0. 4 Not Available [facility] ([facility]) [address] [facility], [place], [address], 11/07/2023 11:15:14 11/06/19 24 11/07/2023 CBC WITH DIFFE RENTI AL/PL ATELE T baso (absolute) 0.1 x10e3 /uL 0.0-0. 2 Not Available [facility] ([facility]) [address] [place], [address], 11/07/2023 11:15:14 11/06/19 24 11/07/2023 CBC WITH DIFFE RENTI AL/PL ATELE T immature granulocytes 0 % notest ab. Not Available [facility] ([facility]) [address] [place], [address], 11/07/2023 11:15:14 11/06/19 24 11/07/2023 CBC WITH DIFFE RENTI AL/PL ATELE T immature grans (abs) 0.0 x10e3 /uL 0.0-0. 1 Not Available [facility] ([facility]) [address] [place], [address], 11/07/2023 11:15:14 11/06/19 24 11/07/2023 TRIIO DOTHY JESSICA E (T3), FREE triiodothyro nine (T3), free 2.6 pg/mL 2.0-4. 4 Not Available [facility] ([facility]) [address] [place], [address], 11/07/2023 11:15:14 05/09/20 24 05/10/2024 LIPID PANEL cholesterol, total 219 mg/dL 100-19 9 above high normal Not Available [facility] ([facility]) [address] [place], [address], 05/10/2024 08:25:02 05/09/20 24 05/10/2024 LIPID PANEL triglyceride s 160 mg/dL 0-149 above high normal Not Available [facility] ([facility]) [address] [place], [address], 05/10/2024 08:25:02 05/09/2005/10/2024 LIPID PANEL HDL cholesterol 68 mg/dL >39 Not Available [facility] ([facility]) [address] [place], [address], 05/10/2024 08:25:02 05/09/20 24 05/10/2024 LIPID PANEL VLDL cholesterol benjamin 28 mg/dL 5-40 Not Available [facility] ([facility]) [address] [place], [address], 05/10/2024 08:25:02 05/09/20 24 05/10/2024 LIPID PANEL LDL chol calc ([facility]) 123 mg/dL 0-99 above high normal Not Available [facility] ([facility]) [address] [place], [address], 05/10/2024 08:25:02 05/09/20 24 05/10/2024 COMP. METAB OLIC PANEL (14) glucose 102 mg/dL 70-99 above high normal Not Available [facility] ([facility]) [address] [place], [address], 05/10/2024 08:25:04 05/09/20 24 05/10/2024 COMP. METAB OLIC PANEL (14) BUN 13 mg/dL 8-27 Not Available [facility] ([facility]) [address] [place], [address], 05/10/2024 08:25:04 05/09/20 24 05/10/2024 COMP. METAB OLIC PANEL (14) creatinine 0.63 mg/dL 0.57-1 .00 Not Available [facility] ([facility]) [address] [facility], [place], [address], 05/10/2024 08:25:04 05/09/20 24 05/10/2024 COMP. METAB OLIC PANEL (14) eGFR 97 mL/mi n/1.7 3 >59 Not Available [facility] ([facility]) [address] [facility], [place], [address], 05/10/2024 08:25:04 05/09/20 24 05/10/2024 COMP. METAB OLIC PANEL (14) BUN/creatini ne ratio 21 12-28 Not Available [facility] ([facility]) [address] [facility], [place], [address], 05/10/2024 08:25:04 05/09/20 24 05/10/2024 COMP. METAB OLIC PANEL (14) sodium 135 mmol/ L 134-14 4 Not Available [facility] ([facility]) [address] [facility], [place], [address], 05/10/2024 08:25:04 05/09/20 24 05/10/2024 COMP. METAB OLIC PANEL (14) potassium 4.9 mmol/ L 3.5-5. 2 Not Available [facility] ([facility]) [address] [facility], [place], [address], 05/10/2024 08:25:04 05/09/20 24 05/10/2024 COMP. METAB OLIC PANEL (14) chloride 98 mmol/ L 96-106 Not Available [facility] ([facility]) [address] [facility], [place], [address], 05/10/2024 08:25:04 05/09/20 24 05/10/2024 COMP. METAB OLIC PANEL (14) carbon dioxide, total 22 mmol/ L 20-29 Not Available [facility] ([facility]) [address] [facility], [place], [address], 05/10/2024 08:25:04 05/09/20 24 05/10/2024 COMP. METAB OLIC PANEL (14) calcium 9.2 mg/dL 8.7-10 .3 Not Available [facility] ([facility]) [address] [facility], [place], [address], 05/10/2024 08:25:04 05/09/2005/10/2024 COMP. METAB OLIC PANEL (14) protein, total 6.9 g/dL 6.0-8. 5 Not Available [facility] ([facility]) [address] [facility], [place], [address], 05/10/2024 08:25:04 05/09/20 24 05/10/2024 COMP. METAB OLIC PANEL (14) albumin 4.5 g/dL 3.9-4. 9 Not Available [facility] ([facility]) [address] [place], [address], 05/10/2024 08:25:04 05/09/20 24 05/10/2024 COMP. METAB OLIC PANEL (14) globulin, total 2.4 g/dL 1.5-4. 5 Not Available [facility] ([facility]) [address] [place], [address], 05/10/2024 08:25:04 05/09/20 24 05/10/2024 COMP. METAB OLIC PANEL (14) bilirubin, total 0.6 mg/dL 0.0-1. 2 Not Available [facility] ([facility]) [address] [place], [address], 05/10/2024 08:25:04 05/09/20 24 05/10/2024 COMP. METAB OLIC PANEL (14) alkaline phosphatase 82 IU/L 44-121 Not Available [facility] ([facility]) [address] [place], [address], 05/10/2024 08:25:04 05/09/20 24 05/10/2024 COMP. METAB OLIC PANEL (14) AST (SGOT) 23 IU/L 0-40 Not Available [facility] ([facility]) [address] [place], [address], 05/10/2024 08:25:04 05/09/20 24 05/10/2024 COMP. METAB OLIC PANEL (14) ALT (SGPT) 18 IU/L 0-32 Not Available [facility] ([facility]) [address] [facility], [place], [address], 05/10/2024 08:25:04 05/09/20 24 05/10/2024 HEMOG LOBIN A1C hemoglobin A1C 6.5 % 4.8-5. 6 above high normal Predi abete s: 5.7 - 6.4 Diabe russ: >6.4 Glyce collins contr ol for adult s with diabe russ: <7.0 Not Available [facility] ([facility]) [address] [place], [address], 05/10/2024 08:25:05 05/09/20 24 05/10/2024 CBC WITH DIFFE RENTI AL/PL ATELE T WBC 5.9 x10e3 /uL 3.4-10 .8 Not Available [facility] ([facility]) [address] [place], [address], 05/10/2024 08:25:06 05/09/20 24 05/10/2024 CBC WITH DIFFE RENTI AL/PL ATELE T RBC 4.48 x10e6 /uL 3.77-5 .28 Not Available [facility] ([facility]) [address] [place], [address], 05/10/2024 08:25:06 05/09/20 24 05/10/2024 CBC WITH DIFFE RENTI AL/PL ATELE T hemoglobin 13.0 g/dL 11.1-1 5.9 Not Available [facility] ([facility]) [address] [facility], [place], [address], 05/10/2024 08:25:06 05/09/2005/10/2024 CBC WITH DIFFE RENTI AL/PL ATELE T hematocrit 39.8 % 34.0-4 6.6 Not Available [facility] ([facility]) [address] [facility], [place], [address], 05/10/2024 08:25:06 05/09/20 24 05/10/2024 CBC WITH DIFFE RENTI AL/PL ATELE T MCV 89 fL 79-97 Not Available [facility] ([facility]) [address] [facility], [place], [address], 05/10/2024 08:25:06 05/09/20 24 05/10/2024 CBC WITH DIFFE RENTI AL/PL ATELE T MCH 29.0 pg 26.6-3 3.0 Not Available [facility] ([facility]) [address] [facility], [place], [address], 05/10/2024 08:25:06 05/09/2005/10/2024 CBC WITH DIFFE RENTI AL/PL ATELE T MCHC 32.7 g/dL 31.5-3 5.7 Not Available [facility] ([facility]) [address] [place], [address], 05/10/2024 08:25:06 05/09/2005/10/2024 CBC WITH DIFFE RENTI AL/PL ATELE T RDW 13.7 % 11.7-1 5.4 Not Available [facility] ([facility]) [address] [place], [address], 05/10/2024 08:25:06 05/09/20 24 05/10/2024 CBC WITH DIFFE RENTI AL/PL ATELE T platelets 310 x10e3 /uL 150-45 0 Not Available [facility] ([facility]) [address] [facility], [place], [address], 05/10/2024 08:25:06 05/09/20 24 05/10/2024 CBC WITH DIFFE RENTI AL/PL ATELE T neutrophils 50 % notest ab. Not Available [facility] ([facility]) [address] [facility], [place], [address], 05/10/2024 08:25:06 05/09/20 24 05/10/2024 CBC WITH DIFFE RENTI AL/PL ATELE T lymphs 32 % notest ab. Not Available [facility] ([facility]) [address] [facility], [place], [address], 05/10/2024 08:25:06 05/09/20 24 05/10/2024 CBC WITH DIFFE RENTI AL/PL ATELE T monocytes 11 % notest ab. Not Available [facility] ([facility]) [address] [facility], [place], [address], 05/10/2024 08:25:06 05/09/20 24 05/10/2024 CBC WITH DIFFE RENTI AL/PL ATELE T eos 6 % notest ab. Not Available [facility] ([facility]) [address] [facility], [place], [address], 05/10/2024 08:25:06 05/09/20 24 05/10/2024 CBC WITH DIFFE RENTI AL/PL ATELE T basos 1 % notest ab. Not Available [facility] ([facility]) [address] [facility], [place], [address], 05/10/2024 08:25:06 05/09/20 24 05/10/2024 CBC WITH DIFFE RENTI AL/PL ATELE T neutrophils (absolute) 2.9 x10e3 /uL 1.4-7. 0 Not Available [facility] ([facility]) [address] [facility], [place], [address], 05/10/2024 08:25:06 05/09/20 24 05/10/2024 CBC WITH DIFFE RENTI AL/PL ATELE T lymphs (absolute) 1.9 x10e3 /uL 0.7-3. 1 Not Available [facility] ([facility]) [address] [facility], [place], [address], 05/10/2024 08:25:06 05/09/20 24 05/10/2024 CBC WITH DIFFE RENTI AL/PL ATELE T monocytes(ab solute) 0.7 x10e3 /uL 0.1-0. 9 Not Available [facility] ([facility]) [address] [facility], [place], [address], 05/10/2024 08:25:06 05/09/20 24 05/10/2024 CBC WITH DIFFE RENTI AL/PL ATELE T eos (absolute) 0.4 x10e3 /uL 0.0-0. 4 Not Available [facility] ([facility]) [address] [facility], [place], [address], 05/10/2024 08:25:06 05/09/20 24 05/10/2024 CBC WITH DIFFE RENTI AL/PL ATELE T baso (absolute) 0.1 x10e3 /uL 0.0-0. 2 Not Available [facility] ([facility]) [address] [facility], [place], [address], 05/10/2024 08:25:06 05/09/20 24 05/10/2024 CBC WITH DIFFE RENTI AL/PL ATELE T immature granulocytes 0 % notest ab. Not Available [facility] ([facility]) [address] [facility], [place], [address], 05/10/2024 08:25:06 05/09/20 24 05/10/2024 CBC WITH DIFFE RENTI AL/PL ATELE T immature grans (abs) 0.0 x10e3 /uL 0.0-0. 1 Not Available [facility] ([facility]) [address] [place], [address], 05/10/2024 08:25:06 09/04/19 25 09/05/2024 LIPID PANEL cholesterol, total 135 mg/dL 100-19 9 Not Available [facility] ([facility]) [address] [place], [address], 09/05/2024 07:08:44 09/04/19 25 09/05/2024 LIPID PANEL triglyceride s 78 mg/dL 0-149 Not Available [facility] ([facility]) [address] [place], [address], 09/05/2024 07:08:44 09/04/19 25 09/05/2024 LIPID PANEL HDL cholesterol 55 mg/dL >39 Not Available [facility] ([facility]) [address] [place], [address], 09/05/2024 07:08:44 09/04/19 25 09/05/2024 LIPID PANEL VLDL cholesterol benjamin 15 mg/dL 5-40 Not Available [facility] ([facility]) [address] [place], [address], 09/05/2024 07:08:44 09/04/19 25 09/05/2024 LIPID PANEL LDL chol calc ([facility]) 65 mg/dL 0-99 Not Available [facility] ([facility]) [address] [place], [address], 09/05/2024 07:08:44 09/04/19 25 09/05/2024 COMP. METAB OLIC PANEL (14) glucose 106 mg/dL 70-99 above high normal Not Available [facility] ([facility]) [address] [place], [address], 09/05/2024 07:08:45 09/04/19 25 09/05/2024 COMP. METAB OLIC PANEL (14) BUN 8 mg/dL 8-27 Not Available [facility] ([facility]) [address] [facility] [place], [address], 09/05/2024 07:08:45 09/04/19 25 09/05/2024 COMP. METAB OLIC PANEL (14) creatinine 0.49 mg/dL 0.57-1 .00 below low normal Not Available [facility] ([facility]) [address] [facility] [place], [address], 09/05/2024 07:08:45 09/04/19 25 09/05/2024 COMP. METAB OLIC PANEL (14) eGFR 103 mL/mi n/1.7 3 >59 Not Available [facility] ([facility]) [address] [facility] [place], [address], 09/05/2024 07:08:45 09/04/19 25 09/05/2024 COMP. METAB OLIC PANEL (14) BUN/creatini ne ratio 16 12-28 Not Available [facility] ([facility]) [address] [facility] [place], [address], 09/05/2024 07:08:45 09/04/19 25 09/05/2024 COMP. METAB OLIC PANEL (14) sodium 140 mmol/ L 134-14 4 Not Available [facility] ([facility]) [address] [facility] [place], [address], 09/05/2024 07:08:45 09/04/19 25 09/05/2024 COMP. METAB OLIC PANEL (14) potassium 4.5 mmol/ L 3.5-5. 2 Not Available [facility] ([facility]) [address] [facility] [place], [address], 09/05/2024 07:08:45 09/04/19 25 09/05/2024 COMP. METAB OLIC PANEL (14) chloride 103 mmol/ L 96-106 Not Available [facility] ([facility]) [address] [facility] [place] [place], [address], 09/05/2024 07:08:45 09/04/19 25 09/05/2024 COMP. METAB OLIC PANEL (14) carbon dioxide, total 25 mmol/ L 20- Not Available [facility] ([facility]) [address] [facility] [place], [address], 09/05/2024 07:08:45 09/04/19 25 09/05/2024 COMP. METAB OLIC PANEL (14) calcium 9.0 mg/dL 8.7-10 .3 Not Available [facility] ([facility]) [address] [facility] [place], [address], 09/05/2024 07:08:45 09/04/19 25 09/05/2024 COMP. METAB OLIC PANEL (14) protein, total 6.5 g/dL 6.0-8. 5 Not Available [facility] ([facility]) [address] [place], [address], 09/05/2024 07:08:45 09/04/19 25 09/05/2024 COMP. METAB OLIC PANEL (14) albumin 4.3 g/dL 3.9-4. 9 Not Available [facility] ([facility]) [address] [place], [address], 09/05/2024 07:08:45 09/04/19 25 09/05/2024 COMP. METAB OLIC PANEL (14) globulin, total 2.2 g/dL 1.5-4. 5 Not Available [facility] ([facility]) [address] [place], [address], 09/05/2024 07:08:45 09/04/19 25 09/05/2024 COMP. METAB OLIC PANEL (14) bilirubin, total 0.5 mg/dL 0.0-1. 2 Not Available [facility] ([facility]) [address] [place], [address], 09/05/2024 07:08:45 09/04/19 25 09/05/2024 COMP. METAB OLIC PANEL (14) alkaline phosphatase 74 IU/L 44-121 Not Available [facility] ([facility]) [address] [place], [address], 09/05/2024 07:08:45 09/04/19 25 09/05/2024 COMP. METAB OLIC PANEL (14) AST (SGOT) 21 IU/L 0-40 Not Available [facility] ([facility]) [address] [facility], [place], [address], 09/05/2024 07:08:45 09/04/19 25 09/05/2024 COMP. METAB OLIC PANEL (14) ALT (SGPT) 20 IU/L 0-32 Not Available [facility] ([facility]) [address] [facility], [place], [address], 09/05/2024 07:08:45 09/04/19 25 09/05/2024 HEMOG LOBIN A1C hemoglobin A1C 6.5 % 4.8-5. 6 above high normal Predi abete s: 5.7 - 6.4 Diabe russ: >6.4 Glyce collins contr ol for adult s with diabe russ: <7.0 Not Available [facility] ([facility]) [address] [place], [address], 09/05/2024 07:08:46 09/04/19 25 09/04/2024 CBC WITH DIFFE RENTI AL/PL ATELE T WBC 5.0 x10e3 /uL 3.4-10 .8 Not Available [facility] ([facility]) [address] [facility], [place], [address], 09/05/2024 07:08:47 09/04/19 25 09/04/2024 CBC WITH DIFFE RENTI AL/PL ATELE T RBC 4.33 x10e6 /uL 3.77-5 .28 Not Available [facility] ([facility]) [address] [facility] [place], [address], 09/05/2024 07:08:47 09/04/19 25 09/04/2024 CBC WITH DIFFE RENTI AL/PL ATELE T hemoglobin 12.0 g/dL 11.1-1 5.9 Not Available [facility] ([facility]) [address] [facility], [place], [address], 09/05/2024 07:08:47 09/04/1909/04/2024 CBC WITH DIFFE RENTI AL/PL ATELE T hematocrit 38.3 % 34.0-4 6.6 Not Available [facility] ([facility]) [address] [place], [address], 09/05/2024 07:08:47 09/04/1909/04/2024 CBC WITH DIFFE RENTI AL/PL ATELE T MCV 89 fL 79-97 Not Available [facility] ([facility]) [address] [place], [address], 09/05/2024 07:08:47 09/04/1909/04/2024 CBC WITH DIFFE RENTI AL/PL ATELE T MCH 27.7 pg 26.6-3 3.0 Not Available [facility] ([facility]) [address] [place], [address], 09/05/2024 07:08:47 09/04/1909/04/2024 CBC WITH DIFFE RENTI AL/PL ATELE T MCHC 31.3 g/dL 31.5-3 5.7 below low normal Not Available [facility] ([facility]) [address] [place], [address], 09/05/2024 07:08:47 09/04/19 25 09/04/2024 CBC WITH DIFFE RENTI AL/PL ATELE T RDW 14.1 % 11.7-1 5.4 Not Available [facility] ([facility]) [address] [facility], [place], [address], 09/05/2024 07:08:47 09/04/19 25 09/04/2024 CBC WITH DIFFE RENTI AL/PL ATELE T platelets 302 x10e3 /uL 150-45 0 Not Available [facility] ([facility]) [address] [facility], [place], [address], 09/05/2024 07:08:47 09/04/1909/04/2024 CBC WITH DIFFE RENTI AL/PL ATELE T neutrophils 58 % notest ab. Not Available [facility] ([facility]) [address] [facility], [place], [address], 09/05/2024 07:08:47 09/04/19 25 09/04/2024 CBC WITH DIFFE RENTI AL/PL ATELE T lymphs 27 % notest ab. Not Available [facility] ([facility]) [address] [facility], [place], [address], 09/05/2024 07:08:47 09/04/19 25 09/04/2024 CBC WITH DIFFE RENTI AL/PL ATELE T monocytes 9 % notest ab. Not Available [facility] ([facility]) [address] [facility], [place], [address], 09/05/2024 07:08:47 09/04/19 25 09/04/2024 CBC WITH DIFFE RENTI AL/PL ATELE T eos 4 % notest ab. Not Available [facility] ([facility]) [address] [facility], [place], [address], 09/05/2024 07:08:47 09/04/19 25 09/04/2024 CBC WITH DIFFE RENTI AL/PL ATELE T basos 1 % notest ab. Not Available [facility] ([facility]) [address] [facility], [place], [address], 09/05/2024 07:08:47 09/04/19 25 09/04/2024 CBC WITH DIFFE RENTI AL/PL ATELE T neutrophils (absolute) 3.0 x10e3 /uL 1.4-7. 0 Not Available [facility] ([facility]) [address] [facility], [place], [address], 09/05/2024 07:08:47 09/04/19 25 09/04/2024 CBC WITH DIFFE RENTI AL/PL ATELE T lymphs (absolute) 1.3 x10e3 /uL 0.7-3. 1 Not Available [facility] ([facility]) [address] [facility], [place], [address], 09/05/2024 07:08:47 09/04/19 25 09/04/2024 CBC WITH DIFFE RENTI AL/PL ATELE T monocytes(ab solute) 0.5 x10e3 /uL 0.1-0. 9 Not Available [facility] ([facility]) [address] [facility], [place], [address], 09/05/2024 07:08:47 09/04/19 25 09/04/2024 CBC WITH DIFFE RENTI AL/PL ATELE T eos (absolute) 0.2 x10e3 /uL 0.0-0. 4 Not Available [facility] ([facility]) [address] [facility], [place], [address], 09/05/2024 07:08:47 09/04/19 25 09/04/2024 CBC WITH DIFFE RENTI AL/PL ATELE T baso (absolute) 0.0 x10e3 /uL 0.0-0. 2 Not Available [facility] ([facility]) [address] [facility], [place], [address], 09/05/2024 07:08:47 09/04/19 25 09/04/2024 CBC WITH DIFFE RENTI AL/PL ATELE T immature granulocytes 1 % notest ab. Not Available [facility] ([facility]) [address] [facility], [place], [address], 09/05/2024 07:08:47 09/04/19 25 09/04/2024 CBC WITH DIFFE RENTI AL/PL ATELE T immature grans (abs) 0.0 x10e3 /uL 0.0-0. 1 Not Available [facility] ([facility]) [address] [facility], [place], [address], 09/05/2024 07:08:47 10/04/19 25 10/04/2024 MAMMO , scree bruke, digit al, bilat eral No observ ation record ed. [id number] [facility] [address], [place], [address], 10/08/2024 23:30:26 Result Notes None recorded. Problems Name Problem SNOMED Code Status Onset Date Resolution Date Notes Provider Name and Address Organization Details Recorded Time Essential hypertension 87198119 Active 2023 Roman Silver MD Attn: Reg romano,[address] [place], [address], [facility] 4 14:04:42 Chronic dermatitis 78205445 Active 2023 Roman Silver MD Attn: Reg romano,[address] [place], [address], [facility] 4 14:04:43 Gastroesophage al reflux disease without esophagitis 119151520 Active 2023 Roman Silver MD Attn: Reg romano,[address] [place], [address], [facility] 4 14:04:47 Hyperglycemia 77222630 Active 2023 Roman Silver MD Attn: Reg romano,[address] [place], [address], [place] [facility] 4 14:04:48 Obesity 209590617 Active 2023 Roman Silver MD Attn: Reg romano,[address] [facility], [place], [address], [place] [facility] 4 14:04:49 Obstructive sleep apnea syndrome 59349457 Active 2023 Roman Silver MD Attn: Reg romano,[address] [facility], [place], [address], [place] [facility] 4 14:04:52 Chronic ulcerative colitis 433080559 Active 2023 Roman Silver MD Attn: Reg romano,[address] [facility], [place], [address], [facility] 4 23:35:01 Problem Notes None recorded. Procedures Surgical History Date Name Laterality Status Provider Name and Address Organization Details Recorded Time Arthroscopic Surgery completed [facility] Ruiz [facility] 11/06/2023 14:04:14 Eye Surgery completed Grayson Ruiz MA [facility] 11/06/2023 14:04:20 delivery completed Grayson Ruiz MA [facility] 11/06/2023 14:04:28 Imaging Results Imaging Date Name Status LastModified by Organiz ation Details LastModified Time 10/04/2024 MAMMO, screening, digital, bilateral completed [address] [facility] [address], [place], [address], 10/08/2024 23:30:26 Procedure Notes None recorded. Medical Equipment None Reported. Allergies Allergen ID Allergen Name Allergen Category Reaction Reaction Severity Criticality Documentation Date Start Date Code Code System Note Provider Name and Address Organization Details Recorded Time 496299 Product containin g penicilli n (product) medicatio n Not available Not available Not available 11/06/2023 30384 8001 SNOMED Not Available Not Available Not Available Medications Name Sig Start Date Stop Date Status Note LastModified by Organization Details LastModified Time atorvastati n 40 mg tablet TAKE 1 TABLET BY MOUTH EVERY DAY 2024 active Not Available Not Available Not Avai lable doxycycline hyclate 100 mg capsule Take 1 capsule twice a day by oral route for 10 days. active Not Available Not Available No t Available clindamycin HCl 300 mg capsule TAKE 1 CAPSULE BY MOUTH EVERY 8 HOURS 03/18 completed Not Available Not Available Not Available sulfamethox azole 800 mg-trimetho prim 160 mg tablet TAKE 1 TABLET BY MOUTH EVERY 12 HOURS 03/18 completed Not Available Not Available Not Available omeprazole 40 mg capsule,del ayed release TAKE 1 CAPSULE BY MOUTH EVERY DAY active Not Available Not Available No t Available tramadol 50 mg tablet TAKE 1 TABLET 3 TIMES A DAY BY ORAL ROUTE NEEDED. MAX 7 DAYS FOR FIRST FILL active Not Available Not Available No t Available triamcinolo ne acetonide 0.1 % topical cream APPLY DAILY TO RASH active Not Available Not Available No t Available simvastatin 40 mg tablet TAKE 1 TABLET BY MOUTH EVERY DAY active Not Available Not Available No t Available carvedilol 3.125 mg tablet TAKE 1 TABLET BY MOUTH TWICE A DAY 2024 active Not Available Not Available Not Avai lable potassium chloride ER 20 mEq tablet,exte nded release(par t/cryst) TAKE 1 TABLET BY MOUTH EVERY DAY active Not Available Not Available No t Available telmisartan 80 mg tablet TAKE 1 TABLET BY MOUTH EVERY DAY 2024 active Not Available Not Available Not Avai lable montelukast 10 mg tablet TAKE 1 TABLET BY MOUTH EVERY DAY 03/18 completed Not Available Not Available Not Available furosemide 20 mg tablet TAKE 3 TABLETS BY MOUTH EVERY DAY 2024 active Not Available Not Available Not Avai lable ergocalcife rol (vitamin D2) 1,250 mcg (50,000 unit) capsule TAKE 1 CAPSULE EVERY 2 WEEKS BY ORAL ROUTE. 2024 active Not Available Not Available Not Avai lable albuterol sulfate HFA 90 mcg/actuati on aerosol inhaler INHALE 2 PUFFS BY MOUTH EVERY 4 HOURS NEEDED FOR WHEEZING/ SHORTNESS OF BREATH active Not Available Not Available No t Available fluticasone propionate 50 mcg/actuati on nasal spray,suspe nsion SPRAY 1 SPRAY INTO EACH NOSTRIL EVERY DAY 03/18 completed Not Available Not Available Not Available mesalamine 1.2 gram tablet,romel yed release TAKE 4 TABLETS BY MOUTH ONCE DAILY active Not Available Not Available No t Available COVID-19 At-Home Test kit FOLLOW INSTRUCTI ONS INCLUDED WITH THE PACKAGE. 03/18 completed Not Available Not Available Not Available Mounjaro 2.5 mg/0.5 mL subcutaneou s pen injector inject 2.5mg weekly for 4 wks then go to 5mg weekly 2023 active Not Available Not Available Not Avai lable Vitals Date Recorded Body weight Body mass index (BMI) Body height Oxygen saturation Oxygen saturation in Arterial blood by Pulse oximetry Heart rate Systolic blood pressure Diastolic blood pressure Provider Name and Address Organization Details Last Updated DateTime 4 656798. 31 g 53.5 kg/m2 152.4 cm 96 % 96 % 86 /min 130 mm[Hg] 66 mm[Hg] Grayson Ruiz MA [facility] 4 14:09:22 Date Recorded Body height Body mass index (BMI) Body weight Heart rate Oxygen saturation Oxygen saturation in Arterial blood by Pulse oximetry Systolic blood pressure Diastolic blood pressure Provider Name and Address Organization Details Last Updated DateTime 4 152.4 cm 54.5 kg/m2 742547. 27 g 75 /min 96 % 96 % 140 mm[Hg] 80 mm[Hg] Grayson Ruiz MA [facility] 4 14:08:39 Date Recorded Body height Body mass index (BMI) Body weight Heart rate Oxygen saturation Oxygen saturation in Arterial blood by Pulse oximetry Systolic blood pressure Diastolic blood pressure Provider Name and Address Organization Details Last Updated DateTime 4 152.4 cm 55.6 kg/m2 053197. 75 g 79 /min 97 % 97 % 118 mm[Hg] 64 mm[Hg] Clarisa Lee MA [facility] 4 14:00:48 Social History Question Answer Notes LastModified by Organizat ion Details LastModified Time Tobacco Smoking Status [facility] 11/06/2023 14:03:22 Do You Have An Advance Directive? No Information n ot available 11/06/2023 What Is Your Level Of Alcohol Consumption? Moderate Information not available 11/06/2023 Are You Blind Or Do You Have Difficulty Seeing? No Information n ot available 11/06/2023 What Is Your Level Of Caffeine Consumption? Heavy Information not available 11/06/2023 In The 14 Days Before Symptom Onset, Have You Had Close Contact With A Laboratory-confirm ed COVID-19 While That Case Was Ill? No Information n ot available 07/25/2024 In The 14 Days Before Symptom Onset, Have You Had Close Contact With A Person Who Is Under Investigation For COVID-19 While That Person Was Ill? No Information not available 07/25/2024 Have You Been To An Area Known To Be High Risk For COVID-19? No Information not available 07/25/2024 Are You Currently Employed? No Information not available 07/25/2024 Are You Deaf Or Do You Have Serious Difficulty Hearing? No Information not available 11/06/2023 What Type Of Diet Are You Following? REGULAR Information n ot available 11/06/2023 What Was The Date Of Your Most Recent Tobacco Screening? 07/25/2024 Information not available 07/25/2024 What Is Your Relationship Status? Information not available 11/06/2023 Do You Use Your Seat Belt Or Car Seat Routinely? Yes Information not available 11/06/2023 Do You Have Smoke And Carbon Monoxide Detectors In Your Home? Yes Information not available 11/06/2023 Do You Feel Stressed (tense, Restless, Nervous, Or Anxious, Or Unable To Sleep At Night)? [id number] Information not available 11/06/2023 Do You Use Any Illicit Or Recreational Drugs? No Information not available 11/06/2023 Has Tobacco Cessation Counseling Been Provided? No Information not available 11/06/2023 Do You Or Have You Ever Used Any Other Forms Of Tobacco Or Nicotine? No Information not available 11/06/2023 Sex: Female Functional Status Question Answer Note LastModified by Organization D etails LastModified Time Are you able to care for yourself? Yes Information n ot available 11/06/2023 What is your exercise level? None Information not available 11/06/2023 Mental Status None recorded. Family History Relationship Description Onset Age of this Age Resolved Age Notes LastModified by Organization Details LastModified Time Brother Alcohol abuse [email or web address] Not available 08/2023 13:59:53 Brother Diabetes mellitus [email or web address] Not available 08/2023 14:00:41 Brother Heart disease [email or web address] Not available 08/2023 14:01:00 Brother Hypertensive disorder [email or web address] Not available 08/2023 14:01:25 Mother Asthma [email or web address] Not availabl e 11/06/2023 14:00:00 Mother Diabetes mellitus bandersonma Not available 08/2023 14:00:41 Mother Heart disease bandersonma Not available 08/2023 14:01:00 Mother Hypercholest erolemia bandersonma Not available 08/2023 14:01:13 Mother Hypertensive disorder bandersonma Not available 08/2023 14:01:25 Mother Kidney disease bandersonma Not available 08/2023 14:01:35 Mother Myocardial infarction bandersonma Not available 08/2023 14:01:56 Sister Blood coagulation disorder [email or web address] Not available 08/2023 14:00:09 Sister Malignant tumor of breast [email or web address] Not available 08/2023 14:00:16 Sister Diabetes mellitus bandersonma Not available 08/2023 14:00:41 Father Malignant tumor of colon bandersonma Not available 08/2023 14:00:24 Father Diabetes mellitus bandersonma Not available 08/2023 14:00:41 Father Heart disease bandersonma Not available 08/2023 14:01:00 Father Hypercholest erolemia bandersonma Not available 08/2023 14:01:12 Father Hypertensive disorder bandersonma Not available 08/2023 14:01:25 Father Myocardial infarction bandersonma Not available 08/2023 14:01:56 Father Malignant neoplasm of liver bandersonma Not available 08/2023 14:02:35 Medical History Condition Response Coronary Artery Disease N Other N Atrial Fibrillation N High Blood Pressure Y Depression N COPD N Blood Clots N Anxiety Disorder N Muscle, Joint, or Bone Problems Y Acid Reflux (GERD) Y Cancer N Stroke N High Cholesterol Y Liver Disease N Headaches N Kidney or Bladder Problems N Thyroid Problems N GI Problems Y Skin Problems N Anemia N Heart Attack (NE) N Diabetes N Seizures/Epilepsy N Asthma Y Allergies Y Hepatitis N Osteoporosis Y Heart Failure N Gynecological HistoryNo gynecological history recorded. Obstetrics History GPAL:G 0 P 0 0 0 0 Immunizations Vaccine Type Date Status Note Provider Nam e and Address Organization Details Recorded Time Influenza, split virus, quadrivalent, preservative 8 completed Gr[place] Ru[place], [place] [facility] 03/18/2024 14:04:16 Influenza, split virus, quadrivalent, preservative 7 completed Gr[place] Ru[place] [facility] 03/18/2024 14:04:16 Influenza, high-dose, quadrivalent, PF 2 completed Gr[place] Ru[place] [facility] 03/18/2024 14:04:16 Influenza, adjuvanted, quadrivalent, PF 2 completed [place] Ru[place] [facility] 03/18/2024 14:04:16 Influenza, adjuvanted, quadrivalent, PF 3 completed J[place]GE Dc[place] [facility] 03/18/2024 14:04:16 COVID-19, mRNA, LNP-S, PF, 100 mcg/0.5mL dose or 50 mcg/0.25mL dose 1 [place] [facility] 03/18/2024 14:04:16 COVID-19, mRNA, LNP-S, PF, 100 mcg/0.5mL dose or 50 mcg/0.25mL dose 1 completed Gr[place] Ru[place] [facility] 03/18/2024 14:04:16 COVID-19, mRNA, LNP-S, PF, 100 mcg/0.5mL dose or 50 mcg/0.25mL dose 2 completed Gr[place] Ru[place] [facility] 03/18/2024 14:04:16 COVID-19, mRNA, LNP-S, PF, 100 mcg/0.5mL dose or 50 mcg/0.25mL dose 1 [place] [facility] 03/18/2024 14:04:16 Pneumococcal conjugate PCV20, polysaccharide [id number] conjugate, adjuvant, PF 2 [place] [facility] 03/18/2024 14:04:16 COVID-19, mRNA, LNP-S, bivalent, PF, 30 mcg/0.3 mL dose 2 [place] [facility] 03/18/2024 14:04:16 COVID-19, mRNA, LNP-S, PF, zackery-sucrose, 30 mcg/0.3 mL 3 [place] [facility] 03/18/2024 14:04:16 Influenza, split virus, trivalent, preservative 3 [place] [facility] 03/18/2024 14:04:16 Influenza, split virus, quadrivalent, PF 8 [place] [facility] 03/18/2024 14:04:16 Influenza, split virus, quadrivalent, PF 7 [place] [facility] 03/18/2024 14:04:16 COVID-19, mRNA, LNP-S, PF, zackery-sucrose, 30 mcg/0.3 mL 4 [place] [facility] 03/18/2024 14:05:35 Influenza, high-dose, trivalent, PF 4 completed Roman Silver MD Attn: Accounting[address] [place], [address], [facility] 07/27/2024 17:15:47 Past Encounters Encounter ID Performer Location Encounter Start Date Encounter Closed Date Diagnosis/Indication Diagnosis SNOMED-CT Code Diagnosis ICD10 Code Diagnosis Note [id number] Roman Silver MD [facility] - [place] [address] [place] [address] 11/06/2023 13:49:04 11/06/2023 15:02:38 Essential hypertension 36700232 I10 Chronic dermatitis 21892 007 L30.9 Gastroesop hageal reflux disease without esophagitis 791866771 K21.9 Hyperglycemia 11829946 R 73.9 Obesity 984681082 E66.9 Obstructiv e sleep apnea syndrome 32968068 G47.33 [id number] Roman Silver MD [facility] [place] [address] [place] [address] 03/18/2024 13:42:11 03/18/2024 15:10:30 Fatigue 69189685 R53.83 Essential hypertension 69369374 I10 Hyperglycemia 00249610 R 73.9 Gastroesop hageal reflux disease without esophagitis 181474563 K21.9 Obstructiv e sleep apnea syndrome 15594610 G47.33 Chronic ul cerative colitis 992301010 K51.90 [id number] Roman Silver MD [facility] [place] [address] [place] [address] 07/25/2024 13:42:43 07/25/2024 15:08:11 Body mass index 40+ - severely obese 534291459 Z68.43 Morbid obesity 911864699 E66.01 Essential hypertension 61015515 I10 Hyperglycemia 10760855 R 73.9 Type 2 rosibel betes mellitus 15369850 E11.9 Administra tion of influenza vaccine [id number] Z23 Gastroesop hageal reflux disease without esophagitis 168574631 K21.9 Obesity 950446926 E66.9 Obstructiv e sleep apnea syndrome [id number] G47.33 Health Concerns Section Related Observation LastModified by Organization Detai ls LastModified Time None Recorded Concern Status LastModified by Organization Details LastModified Time None Recorded Advance Directives Directive N: Payers Encounter Date Sequence Insurance Name Policy Number Policy Hernandez Covered Member ID Hernandez Member ID Guarantor Name 11/06/2023 1 [place] Ronel Ireland [id number] Ronel Ireland 11/06/2023 2 AETNA - CHOICE (POS II) [id number] Ronel Ireland [id number] Ronel Ireland 03/18/2024 2 AETNA - CHOICE (POS II) [id number] Ronel Ireland [id number] Ronel Ireland 03/18/2024 MEDICARE [facility] Ronel Ireland [id number] Ronel Ireland 07/25/2024 1 [place] Ronel Ireland [id number] Ronel Ireland 07/25/2024 2 AETNA - CHOICE (POS II) [id number] Ronel Ireland [id number] Ronel Ireland Notes Date Note Type Note Provider Name and Address Organization Details Recorded Time 11/06/2023 text/html Hyperlipidemia t ry to watch her diet high blood pressure has been stable ulcerative colitis she has not had any new flareups asthma is been stable GERD doing fine osteoporosis no new bone pain chronic dermatitis doing great [place] in [place] had a great time had a little bit of upper respiratory symptomatology I had given her antibiotics to take so she used them and she completely resolved her symptoms Roman Silver MD Attn: Accounting, [address] [place], [address], [facility] 11/07/2023 14:05:25 03/18/2024 text/html Hyperlipidemia t ry to watch her diet high blood pressure has been stable ulcerative colitis she has not had any new flareups asthma is been stable GERD doing fine osteoporosis no new bone pain chronic dermatitis doing great she was in [place] for a month had a great time had a little bit of upper respiratory symptomatology I had given her antibiotics to take so she used them and she completely resolved her symptoms. She is excited she is going to be going to [place] in a week or so Roman Silver MD Attn: Accounting, [address] [facility], [place], [address], [place] - [facility] 03/18/2024 23:35:56 07/25/2024 text/html chronic leg dermatitis is stable obesity truble losing weight. Diabetes needs A1c she had been I think a peak 6.5 A1c. Ulcerative colitis occasionally will have some blood but she stays in touch with her GI team interval history she did see Cardiology they did not recommend anything further Roman Silver MD Attn: Accounting, [address] [facility], [place], [address], [place] - [facility] 07/27/2024 17:18:11 OBGyn Episode No OBEpisode recorded.
--- OUTSIDE RECORDS SUMMARY | 2024-10-17 00:19 | XMS_ITS | Referral Summary ---
Author Organization [facility] [place] [address] [facility] [address] [place] [address] Care Team Providers Care Billing Department Supervisor Name Role Phone Jeffery Silver MD Primary Care Provider Encounters Date Type Department Care Team Description 08/05/2024 Telephone [facility] Cardiology [address] [place] [address] Jeffery Pettit MD from Last 3 Months Allergies Active Allergy Reactions Criticality Noted Date [...] (20 mg total) by mouth daily Active Gz-J3-snj-zinc- vfz-xuah-fyhsa 600 mg calcium- 800 unit-40 mg tablet,chewable [...] Date 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/11/2009 0 04/25/2018 Social History Tobacco Use Types Packs/Day Years Used Date Smoking Tobacco: Never Smokeless Tobacco: Never Alcohol Use Standard Drinks/Week Comments Yes 0 (1 standard drink = 0.6 oz pur e alcohol) asional Comments Unknown Sex and Gender Information Value Date Recorded Sex Assigned at Not on file Legal Sex Female 12:00 AM HOSPITALITY COORDINATOR Gender Identity Not on file Sexual Orientation Not on file Last Filed Vital Signs Vital Sign Reading Time Taken Comments Blood Pressure 132/86 06/28/2024 9:56 AM HOSPITALITY COORDINATOR Pulse 76 06/28/2024 9:56 AM HOSPITALITY COORDINATOR Temperature - - Respiratory Rate - - Oxygen Saturation 98% 06/28/2024 9:56 AM HOSPITALITY COORDINATOR Inhaled Oxygen Concentration - - Weight 127.9 kg (282 lb) 06/28/2024 9:56 AM HOSPITALITY COORDINATOR Height 152.4 cm (5') 06/28/2024 9:56 AM HOSPITALITY COORDINATOR Body Mass Index 55.07 06/28/2024 9:56 AM HOSPITALITY COORDINATOR Plan of Treatment Not on file Procedures Procedure Name Priority Date/Time Associated Diagnosis Comments POCT LIPID PANEL Routine 06/28/2024 9:50 AM HOSPITALITY COORDINATOR Lipid screening from Last 3 Months or Most Recently Relevant to Health Maintenance Results * POCT lipid panel (06/28/2024 9:50 AM HOSPITALITY COORDINATOR) Cholesterol, POC 180 mg/dL HDL, POC 61 mg/dL Triglycerides, POC 108 mg/dL LDL Cholesterol POC 98 mg/dL Chol/HDL Ratio, POC 2.9 Non-HDL Cholesterol, POC 119 mg/dL Cholesterol Total, POC 180 mg/dL Capillary blood 06/28/2024 9 :50 AM HOSPITALITY COORDINATOR Jeffery Pettit MD POINT OF CARE TEST ORDER DOUG Final Result from Last 3 Months or Most Recently Relevant to Health Maintenance Insurance [facility] HMO AETNA [facility] MEDICARE Care Teams Billing Department Supervisor Relationship Specialty Start Date End Date Jeffery Silver MD PCP - General Internal Medicine 04/25/18
[2024-10-17 11:43] VITALS: BP 159/81; PULSE 66; RESP 16; TEMP 36.4; O2SAT 99; BMI 53.8
--- NOTE | 2024-10-17 11:49 | WPDANESEPPF ---
Anes - Initial Pre Proc Eval Procedure: Operation Date: 10/17/24 13:00 Proposed Procedures p Colonoscopy - Albert Levine MD Date/Time: 10/17/24 11:49 Surgeon: Albert Levine MD Pre Op Diagnosis: Colitis Patient Data Age: 69 Gender: F Height: 1.52 m Weight: 125 kg Last Vital Signs Temp 36.4 C L 10/17/24 11:43 Pulse 66 10/17/24 11:43 Resp 16 10/17/24 11:43 BP 159/81 H 10/17/24 11:43 Pulse Ox 99 10/17/24 11:43 O2 Del Method Room Air 10/17/24 11:43 Allergies Allergy/AdvReac Type Severity Reaction Status Date / Time Penicillins Allergy Intermediate Hives / Verified 10/17/24 11:40 Red Face Home Medications ?Medication ?Instructions ?Recorded ?Confirmed ?Type ergocalciferol (vitamin D2) 1,250 50,000 unit PO [id number] 06/09/21 10/17/24 History mcg (50,000 unit) capsule fluticasone propionate 50 1 spray intranasal DAILY PRN 06/09/21 10/17/24 History mcg/actuation nasal Allergy Symptoms spray,suspension furosemide 20 mg tablet 60 mg PO DAILY 06/09/21 10/17/24 History omeprazole 40 mg capsule,delayed 40 mg PO DAILY 06/09/21 10/17/24 History release potassium chloride 20 mEq 20 meq PO DAILY 06/09/21 10/17/24 History tablet,extended release(part/cryst) (Klor-Con M) telmisartan 80 mg tablet 80 mg PO DAILY 06/09/21 10/17/24 History carvedilol 3.125 mg tablet 3.125 mg PO BID 08/31/22 10/17/24 History coQ10 (ubiquinol) 100 mg capsule 100 mg PO DAILY 08/31/23 10/17/24 History noiqfijr-cevb-uiwpj acid 240 1 tablet PO DAILY 08/31/23 10/17/24 History mcg-vit K 120 jyf-jltcua-grif 293 tablet (Alive Women's 50 Plus (fruit-veg blend)) triamcinolone acetonide 0.1 % 1 applic topical PRN PRN Rash 08/31/23 10/08/24 History topical cream mesalamine 1.2 gram tablet,delayed 4.8 g (4 x 1.2 gram) PO DAILY #360 05/03/24 10/17/24 Rx release tabs atorvastatin 40 mg tablet (Lipitor) 40 mg PO DAILY 09/04/24 10/17/24 History celecoxib 100 mg capsule (Celebrex) 100 mg PO DAILY 10/08/24 10/17/24 History tirzepatide 2.5 mg/0.5 mL mg subcut 10/08/24 History subcutaneous pen injector (Mounjaro) Patient hx anesthesia problems: none Family hx anesthesia problems: none Results Review: All pre-operative results and documents have been reviewed as part of the pre-operative evaluation. [facility] Past Medical History Medical History Family history of colon cancer in father Obesity, morbid, BMI 50 or higher Sleep apnea Hiatal hernia Osteoarthritis (arthritis due to wear and tear of joints) Osteopenia Normal colonoscopy 05/19/2019 GERD (gastroesophageal reflux disease) Hyperlipidemia Hypertension Ulcerative colitis Surgical History Surgical History History of incision and drainage (01/18/23) vulvar incision and drainage History of tonsillectomy and adenoidectomy H/O arthroscopic knee surgery H/O gynecological procedure Destruction of lesion of uterus History of cardiac cath 09/2017 Family History Family History Sibling Pulmonary embolism Malignant tumor of spinal cord Breast cancer Heart disease Cerebrovascular accident Diabetes mellitus Mother Carotid artery stenosis Acute myocardial infarction Diabetes mellitus Cerebrovascular accident Father Diabetes mellitus Social History Social History Smoking status: Never smoker Alcohol intake: current Drinks per week: 21 Alcohol use details: WINE Substance use: never Substance use type: does not use Living arrangements: with family Occupation/Education: retired Gender identity (if verbalized by the patient): Female Sexual Orientation (if Verbalized by the Patient): Straight or Heterosexual Spiritual care concerns: No Anes - Eval Final PreProcedure Day of Procedure 10/17/24 11:49 Patient weight: morbidly obese Heart: regular rate and rhythm Lungs: clear to auscultation Airway: Mallampati scale class II Neurological: alert and oriented Last oral intake: >/= 8 hours ASA classification: IV Emergent: no Anesthesia type and monitoring: general GIVS and standard monitoring Results Review: All pre-operative results and documents have been reviewed as part of the pre-operative evaluation. Informed Consent: The patient's anesthetic plan and its attendant risks and benefits were discussed with the patient/family/POA. Questions were solicited and answers provided to the satisfaction of the patient/family/POA.
[2024-10-17] MEDS: LACTATED RINGERS 1,000 ML 150 ML IV CONT (12:06)
--- NOTE | 2024-10-17 12:32 | PM.HPGS ---
History of Present Illness History of Present Illness Consent: Risks, benefits, and alternatives have been discussed and questions answered. Patient agrees to proceed with procedure. Chief complaint: Colitis Narrative: Ronel Ireland is a 69 year old female here for another colonoscopy, diagnosed with UC 2010 and controlled with mesalamine x4 daily, never used biologics. 2020 found large TA polyp sigmoid since has been getting yearly colonoscopies, last one 09/2023, only noted mild colitis rectosigmoid but random biopsies mild colitis/distorsion in right colon. Review of Systems Review of Systems: All systems reviewed & are unremarkable except as noted in HPI and below PMFSH Past Medical History Medical History Family history of colon cancer in father Obesity, morbid, BMI 50 or higher Sleep apnea Hiatal hernia Osteoarthritis (arthritis due to wear and tear of joints) Osteopenia Normal colonoscopy 05/19/2019 GERD (gastroesophageal reflux disease) Hyperlipidemia Hypertension Ulcerative colitis Surgical History Surgical History History of incision and drainage (01/18/23) vulvar incision and drainage History of tonsillectomy and adenoidectomy H/O arthroscopic knee surgery H/O gynecological procedure Destruction of lesion of uterus History of cardiac cath 09/2017 Family History Family History Sibling Pulmonary embolism Malignant tumor of spinal cord Breast cancer Heart disease Cerebrovascular accident Diabetes mellitus Mother Carotid artery stenosis Acute myocardial infarction Diabetes mellitus Cerebrovascular accident Father Diabetes mellitus Social History Social History Smoking status: Never smoker Alcohol intake: current Drinks per week: 21 Alcohol use details: WINE Substance use: never Substance use type: does not use Living arrangements: with family Occupation/Education: retired Gender identity (if verbalized by the patient): Female Sexual Orientation (if Verbalized by the Patient): Straight or Heterosexual Spiritual care concerns: No Meds Home Medications and Allergies Home Medications ?Medication ?Instructions ?Recorded ?Confirmed ?Type ergocalciferol (vitamin D2) 1,250 50,000 unit PO [id number] 06/09/21 10/17/24 History mcg (50,000 unit) capsule fluticasone propionate 50 1 spray intranasal DAILY PRN 06/09/21 10/17/24 History mcg/actuation nasal Allergy Symptoms spray,suspension furosemide 20 mg tablet 60 mg PO DAILY 06/09/21 10/17/24 History omeprazole 40 mg capsule,delayed 40 mg PO DAILY 06/09/21 10/17/24 History release potassium chloride 20 mEq 20 meq PO DAILY 06/09/21 10/17/24 History tablet,extended release(part/cryst) (Klor-Con M) telmisartan 80 mg tablet 80 mg PO DAILY 06/09/21 10/17/24 History carvedilol 3.125 mg tablet 3.125 mg PO BID 08/31/22 10/17/24 History coQ10 (ubiquinol) 100 mg capsule 100 mg PO DAILY 08/31/23 10/17/24 History rtjqpkyo-qyjq-abcfk acid 240 1 tablet PO DAILY 08/31/23 10/17/24 History mcg-vit K 120 gki-mbxdip-pkmg 293 tablet (Alive Women's 50 Plus (fruit-veg blend)) triamcinolone acetonide 0.1 % 1 applic topical PRN PRN Rash 08/31/23 10/08/24 History topical cream mesalamine 1.2 gram tablet,delayed 4.8 g (4 x 1.2 gram) PO DAILY #360 05/03/24 10/17/24 Rx release tabs atorvastatin 40 mg tablet (Lipitor) 40 mg PO DAILY 09/04/24 10/17/24 History celecoxib 100 mg capsule (Celebrex) 100 mg PO DAILY 10/08/24 10/17/24 History tirzepatide 2.5 mg/0.5 mL mg subcut 10/08/24 History subcutaneous pen injector (Mounjaro) Allergies Allergy/AdvReac Type Severity Reaction Status Date / Time Penicillins Allergy Intermediate Hives / Verified 10/17/24 11:40 Red Face Vital Signs Vital Signs - 24 hr 10/17/24 11:43 Temperature 97.5 F L Pulse Rate 66 Respiratory Rate 16 Blood Pressure 159/81 H Pulse Oximetry 99 Oxygen Delivery Room Air Exam Const: General: comfortable and no acute distress HENMT: Face/Nose/Sinus: Normal nares present Eyes: General: appearance normal, both eyes and all related structures Neck: Neck: no JVD Resp: Auscultation: clear to auscultation bilaterally Cardio: Rate: regular rate Rhythm: regular rhythm GI: Inspection: non-distended GI Palp: Yes Soft to palpation Skin: General skin exam: normal color Neuro: Speech: normal speech Extrem: General: normal to inspection Psych: Mental Status: mental status grossly normal Assessment and Plan Assessment and plan (1) Ulcerative colitis: Code(s): K51.90 - Ulcerative colitis, unspecified, without complications Status: Acute Assessment and Plan: colonoscopy with random bx no change in symptoms (2) Family history of colon cancer in father: Code(s): Z80.0 - Family history of malignant neoplasm of digestive organs Status: Acute
[2024-10-17 12:55] VITALS: BP 120/47; PULSE 66; RESP 17; O2SAT 100
[2024-10-17 13:05] VITALS: BP 133/75; PULSE 61; RESP 20; O2SAT 100
[2024-10-17 13:15] VITALS: BP 157/89; PULSE 62; RESP 18; O2SAT 100
== END 2024-10-17 13:32 | disposition home or self-care (01) ==
PROVIDERS: PCP Internal Medicine; Referring Provider Internal Medicine Gastroenterology; Visit Provider Internal Medicine Gastroenterology
PROC: 0DJD8ZZ Inspection of Lower Intestinal Tract, Via Natural or Artificial Opening Endoscopic (ICD-10-PCS; CPT 45378; principal; 2024-10-17 13:00)
DX: K51.314 Ulcerative (chronic) rectosigmoiditis with abscess (principal); E78.5 Hyperlipidemia, unspecified; I10 Essential (primary) hypertension; G47.30 Sleep apnea, unspecified; M85.88 Other specified disorders of bone density and structure, other site; K21.9 Gastro-esophageal reflux disease without esophagitis; M19.90 Unspecified osteoarthritis, unspecified site; E66.01 Morbid (severe) obesity due to excess calories; Z68.43 Body mass index [BMI] 50.0-59.9, adult; Z79.1 Long term (current) use of non-steroidal anti-inflammatories (NSAID); Z79.85 Long-term (current) use of injectable non-insulin antidiabetic drugs; Z98.890 Other specified postprocedural states; Z98.61 Coronary angioplasty status; Z87.19 Personal history of other diseases of the digestive system; Z80.0 Family history of malignant neoplasm of digestive organs; Z80.8 Family history of malignant neoplasm of other organs or systems; Z80.3 Family history of malignant neoplasm of breast; Z82.49 Family history of ischemic heart disease and other diseases of the circulatory system
CPT/HCPCS: 45380; 88305; J2003; J2704; J7120

== ENCOUNTER 2024-11-06 13:13 | Outpatient (CLI) | payer MEDICARE, OTHER, SELFPAY ==
--- NOTE | ~2024-11-06 | CT_ITS ---
EXAMINATION: CT sinus wo con DATE: 11/06/2024 13:31 INDICATION: Chronic sinusitis TECHNIQUE: Computed tomography (CT) of the paranasal sinuses was performed without intravenous contra st. The dose-length product was 254.35 mGy-cm. Automated exposure control and iterative reconstructio n technique were employed. COMPARISON: None FINDINGS: There is mucosal thickening of the maxillary, ethmoid, sphenoid sinuses. No significant manju al septal deviation. Ostiomeatal units are patent. No mucoperiosteal reaction. IMPRESSION: 1. Moderate sinus disease primarily involving the maxillary sinuses. Reviewed, dictated and finalized at location A.
== END 2024-11-06 13:14 | disposition home or self-care (01) ==
PROVIDERS: PCP Internal Medicine; Visit Provider Nurse Practitioner Family
DX: J32.0 Chronic maxillary sinusitis (principal)
CPT/HCPCS: 70486

== ENCOUNTER 2025-01-29 12:50 | Outpatient (CLI) | payer MEDICARE, OTHER, SELFPAY ==
--- NOTE | 2025-01-29 13:00 | NEURO_ITS ---
Impression: # Diabetic complains of gait dysfunction and numbness ? 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 # Needle/EMG exam with neurogenic changes ? # Clinical correlation recommended Nerve Conduction Studies Anti Sensory Summary Table ?Stim Site NR Peak (ms) P-T Amp (?V) Site1 Site2 Delta-P (ms) Dist (cm) Tej (m/s) Left Sup Fibular Anti Sensory (Ant Lat Mall)??? NO RESPONSE 14 cm NR 14 cm Ant Lat Mall 16.0 Right Sup Fibular Anti Sensory (Ant Lat Mall)??? NO RESPONSE 14 cm NR 14 cm Ant Lat Mall 16.0 Left Sural Anti Sensory (Lat Mall)??? NO RESPONSE Calf NR Calf Lat Mall 16.0 Right Sural Anti Sensory (Lat Mall)??? NO RESPONSE Calf NR Calf Lat Mall 16.0 Motor Summary Table ?Stim Site NR Onset (ms) O-P Amp (mV) Site1 Site2 Delta-0 (ms) Dist (cm) Tej (m/s) Left Peroneal Motor (Vastus Med) Ankle ? 3.4 1.6 Popit Ankle 8.6 40.0 47 Popit ? 12.0 1.6 Right Peroneal Motor (Vastus Med)??? NO RESPONSE Ankle NR Popit Ankle 0.0 Popit NR Left Tibial Motor (Abd Bae Brev) Ankle ? 5.3 1.2 Knee Ankle 8.1 36.0 44 Knee ? 13.4 1.4 Right Tibial Motor (Abd Bae Brev) Ankle ? 5.6 4.2 Knee Ankle 9.1 38.0 42 Knee ? 14.7 2.7 F Wave Studies ?NR F-Lat (ms) L-R F-Lat (ms) Left Peroneal (Mrkrs) (EDB) ? 49.24 0.58 Right Peroneal (Mrkrs) (EDB) ? 49.82 0.58 Left Tibial (Mrkrs) (Abd Hallucis) ? 51.57 0.73 Right Tibial (Mrkrs) (Abd Hallucis) ? 52.30 0.73 EMG ?Side Muscle Nerve Root Ins Act Fibs Amp Dur Recrt Comment Right AntTibialis Dp Br Fibular L4-5 Nml Nml Incr >12ms Nml Right Gastroc Tibial S1-2 Nml Nml Incr >12ms Nml Right Fibularis Long Sup Br Fibular L5-S1 Nml Nml Incr >12ms Nml Right Flex Dig Long Tibial L5-S2 Nml Nml Incr >12ms Nml Right Ext Dig Brev Dp Br Fibular L5, S1 Nml Nml Decr >12ms +2 Right QuadratusFem QuadFemoris L4-5, S1 Nml Nml Nml Nml Nml Left AntTibialis Dp Br Fibular L4-5 Nml Nml Incr >12ms Nml Left Gastroc Tibial S1-2 Nml Nml Incr >12ms Nml Left Fibularis Long Sup Br Fibular L5-S1 Nml Nml Incr >12ms Nml Left Flex Dig Long Tibial L5-S2 Nml Nml Incr >12ms Nml Left Ext Dig Brev Dp Br Fibular L5, S1 Nml Nml Decr >12ms +2 Left QuadratusFem QuadFemoris L4-5, S1 Nml Nml Nml Nml Nml
== END 2025-01-29 12:51 | disposition home or self-care (01) ==
LOC: ANHNEURO 12:52
PROVIDERS: PCP Internal Medicine; Visit Provider Podiatrist Foot & Ankle Surgery
DX: G62.9 Polyneuropathy, unspecified (principal); E11.40 Type 2 diabetes mellitus with diabetic neuropathy, unspecified
CPT/HCPCS: 95886; 95910